=== PATIENT | female | born 1960 | race Caucasian/White ===

== ENCOUNTER 2022-07-14 13:10 | Outpatient (CLI) | payer OTHER, SELFPAY ==
--- NOTE | 2022-07-14 13:20 | CRLHL7_ITS ---
For Patients: As a result of the Century Cures Act, medical imaging exams and procedure reports are released immediately into your electronic medical record. You may view this report before your referring provider. If you have questions, please contact your health care provider. BILATERAL SCREENING MAMMOGRAM WITH COMPUTER-AIDED DETECTION TECHNIQUE: CC and MLO views were obtained. These mammographic images have been obtained using full-field digital technique. These mammographic images were interpreted with the benefit of computer-aided detection. COMPARISON FILM: 04/29/21, 03/25/20, 03/18/19. FINDINGS: There are scattered areas of fibroglandular density IMPRESSION: There is no radiographic evidence for malignancy. ASSESSMENT: BI-RADS Category 1: Negative RECOMMENDATION: Routine screening mammogram in 1 year. A lay language report of this examination will be provided to the patient. Carl Vazquez M.D. Diagnostic Radiologist [email or web address] Transcribed: 7:43 p.m. JAREN/Dictated by: Carl Vazquez MD @ 07/18/2022 11:46:00 AM (Electronically Signed)
== END 2022-07-14 13:11 | disposition home or self-care (01) ==
LOC: MAMMO 13:12
PROVIDERS: PCP Family Medicine; Visit Provider Family Medicine
DX: Z12.31 Encounter for screening mammogram for malignant neoplasm of breast (principal)
CPT/HCPCS: 77067

== ENCOUNTER 2022-08-18 16:16 | Outpatient (CLI) | payer OTHER, SELFPAY ==
[2022-08-18 22:19] LABS: Albumin* 4.9 g/dL (3.3-5.0)
[2022-08-18 22:22] LABS: Bilirubin Direct* 0.3 mg/dL (0.0-0.5); Bilirubin Total* 0.4 mg/dL (0.1-1.5)
[2022-08-18 22:23] LABS: Alanine Aminotransferase* 21 U/L (4-35); Alkaline Phosphatase* 61 U/L (40-150); Aspartate Amino Transferase* 23 U/L (12-35); Total Protein* 7.1 g/dL (6.0-8.3)
== END 2022-08-18 16:17 | disposition home or self-care (01) ==
LOC: LKVREF 16:17
PROVIDERS: PCP Family Medicine; Visit Provider Family Medicine
DX: Z01.419 Encounter for gynecological examination (general) (routine) without abnormal findings (principal); F41.8 Other specified anxiety disorders; Z79.899 Other long term (current) drug therapy
CPT/HCPCS: 80076

== ENCOUNTER 2022-10-06 14:39 | Outpatient (CLI) | payer OTHER, SELFPAY ==
[2022-10-06 22:12] LABS: Cholesterol* 207 mg/dL (90-199); HDL Cholesterol* 53 mg/dL (>=50); LDL Cholesterol Calculated 124 mg/dL (<100); Triglycerides* 152 mg/dL (40-149)
== END 2022-10-06 14:40 | disposition home or self-care (01) ==
LOC: LKVREF 14:40
PROVIDERS: PCP Family Medicine; Visit Provider Family Medicine
DX: Z01.818 Encounter for other preprocedural examination (principal); Z79.899 Other long term (current) drug therapy; E66.9 Obesity, unspecified; R63.5 Abnormal weight gain; R53.83 Other fatigue; Z13.6 Encounter for screening for cardiovascular disorders
CPT/HCPCS: 80061

== ENCOUNTER 2023-06-12 11:09 | Outpatient (CLI) | payer OTHER, SELFPAY | END 2023-06-12 11:10 | disposition home or self-care (01) | PROVIDERS: PCP Family Medicine; Visit Provider Family Medicine | DX: Z00.00 Encounter for general adult medical examination without abnormal findings (principal); E78.00 Pure hypercholesterolemia, unspecified; E66.9 Obesity, unspecified; R53.83 Other fatigue; R63.5 Abnormal weight gain; R07.9 Chest pain, unspecified; Z79.899 Other long term (current) drug therapy | CPT/HCPCS: 80048; 80076; 82465; 83718 ==

== ENCOUNTER 2023-06-26 14:06 | Outpatient (CLI) | payer OTHER, SELFPAY ==
[2023-06-26 16:56] VITALS: BP 133/82; PULSE 98
--- NOTE | 2023-06-26 17:01 | W.PM.STED ---
Stress Test Note Date Date of test: 06/26/23 Providers Primary care provider: Torrey Nesbitt Stress test physician: Pito Donald Stress Test Note Stress test ordered: Stress Echo Indication for test: Chest pain Results discussion: Patient is a very nice 63-year-old female who presents here for the above test, stress echo, cardiac stress test medical history form is reviewed entirely. She understands the risks benefits and side effects and like to proceed. Pretest EKG shows normal sinus rhythm, with a ventricular rate of 92, blood pressure 124/79. Following standard Tobin protocol patient is exercised for a total time 7 minutes 2nd, she had a metabolic VIII 0.5 Mets, test is terminated because of fatigue, did not have any chest pain some very mild shortness of breath, her maximum heart rate was 149 which is 110% of the maximum. During this test there is no appreciable ST wave changes suggestive ischemia. Impression: Negative electrographic portion of stress echo, subjectively and objectively negative Follow up suggested: Await echo results, clinical correlation with these will be needed. Patient left this testing facility in excellent condition, final echo report by Cardiology.
--- NOTE | 2023-06-26 17:05 | W.PM.STED ---
Stress Test Note Date Date of test: 06/26/23 Providers Primary care provider: Torrey Nesbitt Stress test physician: Pito Donald Stress Test Note Stress test ordered: Stress Echo
== END 2023-06-26 14:07 | disposition home or self-care (01) ==
LOC: STRESS 14:07
PROVIDERS: PCP Family Medicine; Visit Provider Family Medicine
DX: R07.9 Chest pain, unspecified (principal); E78.00 Pure hypercholesterolemia, unspecified
CPT/HCPCS: 93016; 93325; 93351

== ENCOUNTER 2023-08-15 14:09 | Outpatient (CLI) | payer OTHER, SELFPAY ==
--- NOTE | 2023-08-15 14:00 | CRLHL7_ITS ---
For Patients: As a result of the Century Cures Act, medical imaging exams and procedure reports are released immediately into your electronic medical record. You may view this report before your referring provider. If you have questions, please contact your health care provider. BILATERAL SCREENING MAMMOGRAM WITH COMPUTER-AIDED DETECTION TECHNIQUE: CC and MLO views were obtained. These mammographic images have been obtained using full-field digital technique. These mammographic images were interpreted with the benefit of computer-aided detection. COMPARISON FILM: 07/14/22, 04/29/21, 03/25/20. FINDINGS: There are scattered areas of fibroglandular density IMPRESSION: There is no radiographic evidence for malignancy. ASSESSMENT: BI-RADS Category 1: Negative RECOMMENDATION: Routine screening mammogram in 1 year. A lay language report of this examination will be provided to the patient. Carl Vazquez M.D. Diagnostic Radiologist [email or web address] JAREN/Dictated by: Carl Vazquez MD @ 08/16/2023 8:26:00 AM (Electronically Signed)
== END 2023-08-15 14:10 | disposition home or self-care (01) ==
LOC: MAMMO 14:12
PROVIDERS: PCP Family Medicine; Visit Provider Family Medicine
DX: Z12.31 Encounter for screening mammogram for malignant neoplasm of breast (principal)
CPT/HCPCS: 77067

== ENCOUNTER 2024-07-17 11:28 | Outpatient (CLI) | payer OTHER, SELFPAY ==
--- OUTSIDE RECORDS SUMMARY | 2024-07-17 11:32 | XMS_ITS | Encounter Summary ---
Author Organization [facility] Address [address] [place] [address] Care Team Providers Care It Risk And Assurance Senior Manager Name Role Phone Unassigned, Pcp Primary Care Provider Unavailabl e Reason for Visit * Reason Comments Fall Encounter Details Date Type Department Care Team (Late st Contact Info) Description 07/07/2024 11:50 AM [facility] - 07/07/2024 11:59 PM [facility] Emergency [facility] [address] [place] [id number] Fracture Rib Single Closed Initial Right (Primary Dx) Discharge Disposition: Home or Self Care Social History Tobacco Use Types Packs/Day Years Used Date Smoking Tobacco: Former Cigarettes Q uit: 02/15/2011 Smokeless Tobacco: Never PHQ-2 Answer Date Recorded PHQ-2 Score 0 02/07/2023 Depression Answer Date Recor ded PHQ-9 Total Score (max 27) 0 02/07 Nutrition Answer Date Recorded Nutrition: EVOO Fat Source Unknown 10/27 Nutrition: Servings of Fruits/Vegetables per Day Not on file 10/27/2020 Dental Answer Date Recorded Dental: Regular Dentist Unknown 10/27/19 21 Comments No Sex and Gender Information Value Date Recorded Sex Assigned at Not on file Legal Sex Female 4:19 AM [facility] Gender Identity Not on file Sexual Orientation Not on file documented as of this encounter Medications at Time of Discharge benzonatate (TESSALON) 200 mg capsuleIndication s:Cough Acute Take 1 capsule (200 mg total) by mouth 3 (three) times a day as needed for cough. 42 capsule 04/16/2023 buPROPion XL (WELLBUTRIN XL) 150 mg 24 hr tablet Take 150 mg by mouth. 09/19/2021 buPROPion XL (WELLBUTRIN XL) 300 mg 24 hr tablet Take 300 mg by mouth daily. 10/04/2010 cyclobenzaprine (FLEXERIL) 10 mg tablet 09/19/2021 LORazepam (ATIVAN) 1 mg tablet Take 1 mg by mouth 2 (two) times a day as needed for anxiety. meloxicam (MOBIC) 15 mg tablet 09/19/2021 oxyCODONE-acetami nophen (PERCOCET) 5-325 mg per tablet Take 2 tablets by mouth every 4 (four) hours as needed for pain. rosuvastatin (CRESTOR) 10 mg tablet Take 10 mg by mouth daily. 12/28/2022 traZODone (DESYREL) 50 mg tablet 09/19/2021 valACYclovir (VALTREX) 1000 mg tablet Take 1,000 mg by mouth 2 (two) times a day as needed. venlafaxine (EFFEXOR) 75 mg 24 hr tablet Take 75 mg by mouth daily. documented as of this encounter Plan of Treatment Not on file documented as of this encounter Procedures Procedure Name Priority Date/Time Associated Diagnosis Comments DX HIP AND PELVIS RIGHT 2-3 VIEWS RAD - Semiurgent (Fast; most ED patients; some inpatients) 07/07/2024 1:19 PM [facility] DX ELBOW RIGHT 3+ VIEWS RAD - Semiurgent (Fast; most ED patients; some inpatients) 07/07/2024 1:[address] ABDOMEN PELVIS WITH IV CONTRAST RAD - Semiurgent (Fast; most ED patients; some inpatients) 07/07/2024 1:[address] CHEST WITH IV CONTRAST RAD - Semiurgent (Fast; most ED patients; some inpatients) 07/07/2024 1:07 PM [facility] documented in this encounter Results * DX Hip And Pelvis Right 2-3 Views (07/07/2024 1:19 PM FIRE [facility]IE[facility]ENANT) Anatomical Region Laterality Modality Lower Extremity, Pelvis, Hip , Musculoskeletal RST LOS, Musculoskeletal ARZ LOS, Muskuloskeletal FLA LOS Right Digit al Radiography Impressions 07/07/2024 1:24 PM [facility]IE[facility] No fracture is identified. Degenerative change L4-5 and L5-S1. Degenerative change sacroiliac joints and pubic symphysis. Preserved superior hip joint spaces. Intravenous contrast in the renal collecting systems, ureters, as well as the bladder. Narrative 07/07/2024 1:24 PM [facility] EXAM: DX HIP AND PELVIS RIGHT 2-3 VIEWS Procedure Note Julia Brown M.D. - 07/07/2024 EXAM: DX HIP AND PELVIS RIGHT 2-3 VIEWS IMPRESSION: No fracture is identified. Degenerative change L4-5 and L5-S1.Degenerative change sacroiliac joints and pubic symphysis. Preservedsuperior hip joint spaces. Intravenous contrast in the renal collecting systems, ureters, as well asthe bladder. us Nilton Dominguez P.A.-C. [facility] [place] DIAGNOSTIC IMAGING PRO CEDURES Final Result * DX Elbow Right 3+ Views (07/07/2024 1:18 PM FIRE [facility]IE[facility]) Anatomical Region Laterality Modality Upper Extremity, Elbow, Musc uloskeletal RST LOS, Musculoskeletal ARZ LOS, Muskuloskeletal FLA LOS Right Digit al Radiography Impressions 07/07/2024 3:24 PM [facility] Mild ulnotrochlear degeneration. No dislocation. Negative for acute fracture. No significant knee joint effusion. Narrative 07/07/2024 3:24 PM [facility] EXAM: DX ELBOW RIGHT 3+ VIEWS Procedure Note Nilton Tenroio M.D. - 07/07/2024 EXAM: DX ELBOW RIGHT 3+ VIEWS IMPRESSION: Mild ulnotrochlear degeneration. No dislocation. Negative for acutefracture. No significant knee joint effusion. us Nilton Daniel-C. [facility] DIAGNOSTIC IMAGING PRO CEDURES Final Result * CT Abdomen Pelvis with IV Contrast (07/07/2024 1:07 PM [facility]) Anatomical Region Laterality Modality Abdomen, Pelvis, Abdominal R ST LOS, Abdominal ARZ LOS, Abdominal FLA LOS N/A Computed Tomography 07/07/2024 1:03 PM [facility] Impressions 07/07/2024 1:30 PM [facility] 1. Nondisplaced right ninth rib fracture. 2. Small right buttock subcutaneous hematoma. 3. Moderate emphysema. Narrative 07/07/2024 1:30 PM [facility] EXAM: CT CHEST WITH IV CONTRAST, CT ABDOMEN PELVIS WITH IV CONTRAST COMPARISON: Chest radiograph 10/29/2021 FINDINGS: Chest CT: Focal fatty deposition along the falciform ligament and multiple right hepatic lobe simple cysts. The gallbladder, spleen, pancreas are within normal limits. Trace adenomatous thickening of the left adrenal gland without discrete nodule. Tiny hypodensities in both kidneys, too small to characterize, most likely simple cysts. Heart size is normal without pericardial effusion. No enlarged mediastinal or hilar lymph nodes. There is a nondisplaced fracture of the right ninth lateral rib. No other fracture. Hemangioma in the T10 vertebral body. Moderate emphysema. No focal airspace consolidation. Trace dependent basilar atelectasis. No pneumothorax. No suspicious pulmonary nodule Abdomen pelvis CT: Multiple simple right hepatic cysts. Focal fatty deposition along the falciform ligament. The gallbladder, spleen, pancreas are within normal limits. Trace adenomatous thickening in the left adrenal gland without discrete nodule. Tiny hypodensities in both kidneys are too small to characterize, most likely simple cysts. Prominent left gonadal vein, nonspecific but can be seen in pelvic congestion syndrome. The urinary bladder is within normal limits. Few colonic diverticula without evidence of diverticulitis. Appendectomy. Nondilated small bowel. Normal caliber abdominal aorta. No enlarged lymph nodes. No free abdominal air or fluid. There is a small right buttock subcutaneous hematoma and right buttock fat stranding. No evidence for active bleeding. No pelvic fracture. Degenerative changes in the spine. Procedure Note Adan Ellsworth M.D. - 07/07/2024 EXAM: CT CHEST WITH IV CONTRAST, CT ABDOMEN PELVIS WITH IV CONTRAST COMPARISON: Chest radiograph 10/29/2021 FINDINGS: Chest CT: Focal fatty deposition along the falciform ligament and multipleright hepatic lobe simple cysts. The gallbladder, spleen, pancreas arewithin normal limits. Trace adenomatous thickening of the left adrenalgland without discrete nodule. Tiny hypodensities in both kidneys, too small to characterize, most likelysimple cysts. Heart size is normal without pericardial effusion. Noenlarged mediastinal or hilar lymph nodes. There is a nondisplaced fracture of the right ninth lateral rib. No otherfracture. Hemangioma in the T10 vertebral body. Moderate emphysema. Nofocal airspace consolidation. Trace dependent basilar atelectasis. Nopneumothorax. No suspicious pulmonary nodule Abdomen pelvis CT: Multiple simple right hepatic cysts. Focal fattydeposition along the falciform ligament. The gallbladder, spleen, pancreasare within normal limits. Trace adenomatous thickening in the left adrenalgland without discrete nodule. Tiny hypodensities in both kidneys are too small to characterize, most likelysimple cysts. Prominent left gonadal vein, nonspecific but can be seen inpelvic congestion syndrome. The urinary bladder is within normal limits.Few colonic diverticula without evidence of diverticulitis. Appendectomy. Nondilated small bowel. Normalcaliber abdominal aorta. No enlarged lymph nodes. No free abdominal air orfluid. There is a small right buttock subcutaneous hematoma and right buttock fatstranding. No evidence for active bleeding. No pelvic fracture.Degenerative changes in the spine. IMPRESSION: 1. Nondisplaced right ninth rib fracture. 2. Small right buttock subcutaneous hematoma. 3. Moderate emphysema. Nilton Dominguez P.A.-C. IMG CT PROCEDURES Final Re sult * CT Chest with IV Contrast (07/07/2024 1:07 PM FIRE [facility]IE[facility]NT) Anatomical Region Laterality Modality Chest, Thoracic RST LOS, Tho racic ARZ LOS, Thoracic ARZ LOS, Thoracic FLA LOS N/A Computed Tomography 07/07/2024 1:02 PM [facility] Impressions 07/07/2024 1:30 PM [facility] 1. Nondisplaced right ninth rib fracture. 2. Small right buttock subcutaneous hematoma. 3. Moderate emphysema. Narrative 07/07/2024 1:30 PM [facility] EXAM: CT CHEST WITH IV CONTRAST, CT ABDOMEN PELVIS WITH IV CONTRAST COMPARISON: Chest radiograph 10/29/2021 FINDINGS: Chest CT: Focal fatty deposition along the falciform ligament and multiple right hepatic lobe simple cysts. The gallbladder, spleen, pancreas are within normal limits. Trace adenomatous thickening of the left adrenal gland without discrete nodule. Tiny hypodensities in both kidneys, too small to characterize, most likely simple cysts. Heart size is normal without pericardial effusion. No enlarged mediastinal or hilar lymph nodes. There is a nondisplaced fracture of the right ninth lateral rib. No other fracture. Hemangioma in the T10 vertebral body. Moderate emphysema. No focal airspace consolidation. Trace dependent basilar atelectasis. No pneumothorax. No suspicious pulmonary nodule Abdomen pelvis CT: Multiple simple right hepatic cysts. Focal fatty deposition along the falciform ligament. The gallbladder, spleen, pancreas are within normal limits. Trace adenomatous thickening in the left adrenal gland without discrete nodule. Tiny hypodensities in both kidneys are too small to characterize, most likely simple cysts. Prominent left gonadal vein, nonspecific but can be seen in pelvic congestion syndrome. The urinary bladder is within normal limits. Few colonic diverticula without evidence of diverticulitis. Appendectomy. Nondilated small bowel. Normal caliber abdominal aorta. No enlarged lymph nodes. No free abdominal air or fluid. There is a small right buttock subcutaneous hematoma and right buttock fat stranding. No evidence for active bleeding. No pelvic fracture. Degenerative changes in the spine. Procedure Note Adan Ellsworth M.D. - 07/07/2024 EXAM: CT CHEST WITH IV CONTRAST, CT ABDOMEN PELVIS WITH IV CONTRAST COMPARISON: Chest radiograph 10/29/2021 FINDINGS: Chest CT: Focal fatty deposition along the falciform ligament and multipleright hepatic lobe simple cysts. The gallbladder, spleen, pancreas arewithin normal limits. Trace adenomatous thickening of the left adrenalgland without discrete nodule. Tiny hypodensities in both kidneys, too small to characterize, most likelysimple cysts. Heart size is normal without pericardial effusion. Noenlarged mediastinal or hilar lymph nodes. There is a nondisplaced fracture of the right ninth lateral rib. No otherfracture. Hemangioma in the T10 vertebral body. Moderate emphysema. Nofocal airspace consolidation. Trace dependent basilar atelectasis. Nopneumothorax. No suspicious pulmonary nodule Abdomen pelvis CT: Multiple simple right hepatic cysts. Focal fattydeposition along the falciform ligament. The gallbladder, spleen, pancreasare within normal limits. Trace adenomatous thickening in the left adrenalgland without discrete nodule. Tiny hypodensities in both kidneys are too small to characterize, most likelysimple cysts. Prominent left gonadal vein, nonspecific but can be seen inpelvic congestion syndrome. The urinary bladder is within normal limits.Few colonic diverticula without evidence of diverticulitis. Appendectomy. Nondilated small bowel. Normalcaliber abdominal aorta. No enlarged lymph nodes. No free abdominal air orfluid. There is a small right buttock subcutaneous hematoma and right buttock fatstranding. No evidence for active bleeding. No pelvic fracture.Degenerative changes in the spine. IMPRESSION: 1. Nondisplaced right ninth rib fracture. 2. Small right buttock subcutaneous hematoma. 3. Moderate emphysema. us Nilton Dominguez P.A.-C. IMG CT PROCEDURES Final Re sult documented in this encounter Visit Diagnoses Diagnosis Fracture Rib Single Closed Initial Right- Primary documented in this encounter Administered Medications Inactive Administered Medications - up to 3 most recent administrations Medication Order MAR Action Action Date Dose Rate Site iohexoL 300 mg iodine/mL solution 100 mL (Omnipaque) 100 mL, intravenous, Once in imaging, contrast, Starting on Sun07/07/24 at 1307, For 1 dose Given 07/07/2024 12:58 PM [facility] 100 mL Right Antecubital sodium chloride 0.9 % flush 50 mL 50 mL, intravenous, Once, On Sun07/07/24 at 1315, For 1 dose Given 07/07/2024 1:09 PM [facility] 75 mL Right Antecubital sodium chloride 0.9 % injection 10 mL 10 mL, intravenous, Once, On Sun07/07/24 at 1315, For 1 dose Given 07/07/2024 1:09 PM [facility] 10 mL Right Antecubital documented in this encounter Active and Recently Administered Medications Due to Daylight Saving Time, this section may contain times in both CDT and FIRE [facility]IE[facility]. Scheduled Medication Order 07/05/2024 07/06/2024 07/07/2024 sodium chloride 0.9 % flush 50 mL (COMPLETED) 50 mL, intravenous, Once, On Sun07/07/24 at 1315, For 1 dose 1309 (Given - Provid er: Agyla S Wilks, R.T.(R)(CT), R.T.(R)) sodium chloride 0.9 % injection 10 mL (COMPLETED) 10 mL, intravenous, Once, On Sun07/07/24 at 1315, For 1 dose 1309 (Given - Provid er: Cornelio Benavidez(Gwen)(CT), R.T.(R)) PRN Medication Order 07/05/2024 07/06/2024 07/07/2024 iohexoL 300 mg iodine/mL solution 100 mL (Omnipaque) (COMPLETED) 100 mL, intravenous, Once in imaging, contrast, Starting on Sun07/07/24 at 1307, For 1 dose 1258 (Given - Provid er: Cornelio Benavidez(Gwen)(CT), Gwen.TGely(R)) documented in this encounter Additional Health Concerns Assessment Noted Time PHQ-9 Depression Total Score: 0 02/08/20 23 2:08 PM CDT documented as of this encounter Care Teams It Risk And Assurance Senior Manager Relationship Specialty Start Date End Date Unassigned, Pcp PCP - General Family Medicine 10/29/21 documented as of this encounter
--- OUTSIDE RECORDS SUMMARY | 2024-07-17 11:32 | XMS_ITS ---
Author Organization [facility] Address [address] [place] [address] Care Team Providers Care Natural Resources Extension Educator Name Role Phone Unavailable Unavailable Unavailable Surgery Details Not on file Complications Check Surgery Details section. Procedure Estimated Blood Loss Check Surgery Details section. Procedure Findings Check Surgery Details section. Procedure Specimens Taken Check Surgery Details section.
--- OUTSIDE RECORDS SUMMARY | 2024-07-17 11:32 | XMS_ITS | Encounter Summary ---
Author Organization [facility] Address [address] [place] [address] Care Team Providers Care Flagsetter Name Role Phone Unassigned, Pcp Primary Care Provider Unavailabl e Reason for Visit * Reason Onset Date Comments Fall 07/07/2024 Chest Wall Pain 07/07/2024 Encounter Details Date Type Department Care Team (Late st Contact Info) Description 07/07/2024 Nurse Triage Department of Family Medicine, [facility], in [place], [place] [address] [place] [phone] Joan Ramirez RVivian. Fall; Chest Wall Pain Social History Tobacco Use Types Packs/Day Years [...] on file Legal Sex Female 4:19 AM CUSTOMER SERVICE ADVOCATE Gender Identity Not on file Sexual Orientation Not on file documented as of this encounter Miscellaneous Notes * Telephone Encounter - Joan Ramirez, R.N. - 07/07/2024 10:07 AM CUSTOMER SERVICE ADVOCATE Chief Complaint / Reason for Call Patient is a 64 y.o. female calling regarding Fall and Chest Wall Pain. Assessment Concern: Patient is calling in regarding falling with a ladder around 7 feet high. Patient landed on her hand and right side. The left knee is also sore. There is a large lump on the right side near hip bone. Patient can walk, but is very sore. Pain 8/10, rest increases with movement. Present for: yesterday Home cares tried: Tylenol, ibuprofen Calling to request: appointment The recommended disposition is See a health care provider within 24 hours. Patient was provided scheduling phone number, plan of care, and transferred to scheduling per current regional process. Care Advice Patient/Caregiver understands and will follow care advice?: Yes, able to teach back Hip Jllenm-HFAFX-BD Nurse Joan [facility] Jul 07, 2024 10:16 AM Care Advice SEE PCP WITHIN 24 HOURS: * IF OFFICE WILL BE OPEN: You need to be examined within the next 24 hours. Call your doctor (or LABORATORY VETERINARIAN/PA) when the office opens and make an appointment. * IF OFFICE WILL BE CLOSED: You need to be seen within the next 24 hours. A clinic or an urgent care center is often a good source of care if your doctor's office is closed or you can't get an appointment. * IF PATIENT HAS NO PCP: Refer patient to a clinic or urgent care center. Also try to help caller find a PCP for future care. USE A COLD PACK FOR PAIN, SWELLING, OR BRUISING: * Put a cold pack or an ice bag (wrapped in a moist towel) on the area for 20 minutes. * Repeat in 1 hour, then every 4 hours while awake. * Continue this for the first 48 hours (2 days) after an injury. * This will help decrease pain, swelling, and bruising. * Caution: Avoid frostbite. PAIN MEDICINES: * For pain relief, you can take either acetaminophen, ibuprofen, or naproxen. * They are ayfa-kln-emjzcal (OTC) pain drugs. You can buy them at the drugstore. * ACETAMINOPHEN - REGULAR STRENGTH TYLENOL: Take 650 mg (two 325 mg pills) by mouth every 4 to 6 hours as needed. Each Regular Strength Tylenol pill has 325 mg of acetaminophen. The most you should take is 10 pills a day (3,250 mg total). Note: In [place], the maximum is 12 pills a day (3,900 mg total). * ACETAMINOPHEN - EXTRA STRENGTH TYLENOL: Take 1,000 mg (two 500 mg pills) every 6 to 8 hours as needed. Each Extra Strength Tylenol pill has 500 mg of acetaminophen. The most you should take is 6 pills a day (3,000 mg total). Note: In [place], the maximum is 8 pills a day (4,000 mg total). * IBUPROFEN (SUCH MOTRIN, ADVIL): Take 400 mg (two 200 mg pills) by mouth every 6 hours. The most you should take is 6 pills a day (1,200 mg total). * NAPROXEN (SUCH ALEVE): Take 220 mg (one 220 mg pill) by mouth every 8 to 12 hours as needed. You may take 440 mg (two 220 mg pills) for your first dose. The most you should take is 3 pills a day(660 mg total). Note: In [place], the maximum is 2 pills a day (one every 12 hours; 440 mg total). * Use the lowest amount of medicine that makes your pain better. PAIN MEDICINES - EXTRA NOTES AND WARNINGS: * Follow these dosing instructions unless your doctor (or LABORATORY VETERINARIAN/PA) has told you to take a different dose. * Acetaminophen is thought to be safer than ibuprofen or naproxen in people over 65 years old. Acetaminophen is in many OTC and prescription medicines. It might be in more than one medicine that you are taking. You need to be careful and not take an overdose. An acetaminophen overdose can hurt the liver. * [employer], the company that makes Tylenol, has different maximum dosage instructions for Tylenol in [place] than in the [place]. [employer], the company that makes Aleve, has different dosage maximum instructions for Aleve in [place] and the [place]. * Some people with muscle and joint pain benefit from using OTC topical pain medicines (such as thetopical NSAID diclofenac). Do NOT also take NSAIDs by mouth while using a topical NSAID. * CAUTION: Do not take acetaminophen if you have liver disease. * CAUTION: Do not take ibuprofen or naproxen if you have stomach problems, kidney disease, are , or have been told by your doctor to avoid this type of anti-inflammatory drug. Do not take ibuprofen or naproxen for more than 7 days without consulting your doctor. If you take blood thinners, ibuprofen and naproxen can increase the risk of bleeding. * Before taking any medicine, read all the instructions on the package. CALL BACK IF: * Pain becomes severe * You become worse Reason for Disposition [1] MODERATE pain (e.g., interferes with normal activities, limping) AND [2] high-risk adult (e.g.,age > 60 years, osteoporosis, chronic steroid use) Protocols used: Hip Tavpoz-UHTZY-AP OMER SERVICE ADVOCATE documented in this encounter Plan of Treatment Not on file documented as of this encounter Visit Diagnoses Not on filedocumented in this encounter Additional Health Concerns Assessment Noted Time PHQ-9 Depression Total Score: 0 02/08/20 23 2:08 PM CDT documented as of this encounter Care Teams Flagsetter Relationship Specialty Start Date End Date Unassigned, Pcp PCP - General Family Medicine 10/29/21 documented as of this encounter
--- OUTSIDE RECORDS SUMMARY | 2024-07-17 11:32 | XMS_ITS | Clinical Summary ---
Author Organization [facility] Address [address] [place] [id number] Care Team Providers Care Protective Services Officer Name Role Phone Unassigned, Pcp Primary Care Provider Unavailabl e Source Comments Patient records contain information from all sites at [facility]. For routine questions regarding patient records, call [phone] during business hours, M-F 8:00 AM - 5:00 PM Central Time. Record requests for emergency care only can be directed to [phone] at any time.[facility] Allergies Active Allergy Reactions Criticality Noted Date Comments Bee Venom Protein (Honey Bee) Other (see comments) 05/17/2018 Skin swelling and hardness Other reaction(s): Other - Describe In Comment Field Skin swelling and hardness Medications * This document contains information received from the source organization and may not represent a complete record from that organization. buPROPion XL (WELLBUTRIN XL) 300 mg 24 hr tablet Take 300 mg by mouth daily. 10/04/2010 Active venlafaxine (EFFEXOR) 75 mg 24 hr tablet Take 75 mg by mouth daily. Active LORazepam (ATIVAN) 1 mg tablet Take 1 mg by mouth 2 (two) times a day as needed for anxiety. Active valACYclovir (VALTREX) 1000 mg tablet Take 1,000 mg by mouth 2 (two) times a day as needed. Active oxyCODONE-aceta minophen (PERCOCET) 5-325 mg per tablet Take 2 tablets by mouth every 4 (four) hours as needed for pain. Active cyclobenzaprine (FLEXERIL) 10 mg tablet 09/19/2021 Active meloxicam (MOBIC) 15 mg tablet 09/19/2021 Active traZODone (DESYREL) 50 mg tablet 09/19/2021 Active rosuvastatin (CRESTOR) 10 mg tablet Take 10 mg by mouth daily. 12/28/2022 Active buPROPion XL (WELLBUTRIN XL) 150 mg 24 hr tablet Take 150 mg by mouth. 09/19/2021 Active benzonatate (TESSALON) 200 mg capsuleIndicati ons:Cough Acute Take 1 capsule (200 mg total) by mouth 3 (three) times a day as needed for cough. 42 capsule 04/16/2023 Active Active Problems Problem Noted Date Diagnosed Date Radiculopathy Cervical 05/17/2018 Stenosis Spinal Cervical 05/17/2018 Major Depressive Disorder Single Episode Unspeci fied 04/14/2008 Overview (01/23/2017): Depression Major NOS Encounters Date Type Department Care Team Description 07/07/2024 11:50 AM RN MATERNAL CHILD - 07/07/2024 11:59 PM RN MATERNAL CHILD Emergency [facility] [address] [place] [phone] Fracture Rib Single Closed Initial Right (Primary Dx) Discharge Disposition: Home or Self Care 07/07/2024 Nurse Triage Department of Family Medicine, [facility], in [place], [place] [address] [phone] Joan Ramirez, RGelyN. Fall; Chest Wall Pain from Last 3 Months Immunizations Name Administration Dates Next Due DTaP (Infanrix, [employer]) 04/26/2007 H1N1 Inj 08/25/2009 Influenza Split 06/19/2006, 5,06/08/2004,2002,07/09/2002 Influenza, Seasonal, Injectable 07/04/2007 Influenza, Unspecified 05/04/2016,2014,05/22/2012,2010,06/01/2010 Tdap 12/11/2014,04/26/2007 influenza trivalent vaccine (6 months and older)(PF) 06/07/2009,06/22/2008 Social History Tobacco Use Types Packs/Day Years Used Date Smoking Tobacco: Former Cigarettes Q uit: 02/15/2011 Smokeless Tobacco: Never Tobacco Cessation:Counseling Given: Not Answered PHQ-2 Answer Date Recorded PHQ-2 Score 0 [...] on file Legal Sex Female 4:19 AM RN MATERNAL CHILD Gender Identity Not on file Sexual Orientation Not on file Last Filed Vital Signs Vital Sign Reading Time Taken Comments Blood Pressure 130/83 04/16/2023 5:59 PM CDT Pulse 102 04/16/2023 5:59 PM CDT Temperature 37.6 ??C (99.7 ??F) 04/16/2023 5:59 PM CD T Respiratory Rate 16 02/07/2023 2:14 PM CDT Oxygen Saturation 96% 04/16/2023 5:59 PM CDT Inhaled Oxygen Concentration - - Weight 89.2 kg (196 lb 10.4 oz) 02/07/2023 2:14 PM CDT Height 162 cm (5' 3.78) 02/15/2018 2:00 PM CDT Body Mass Index 33.99 02/15/2018 2:00 PM CDT Plan of Treatment Health Maintenance Due Date Last Done Comments CT Colonography 1960 Cologuard 1960 FIT 1960 HIV Screening 1960 Hepatitis C Screening 1960 Mammogram 02/06/2016 02/05/2015, 01/2014, 01/30/2013, Additional history exists Lipid (Cholesterol) Screening 02/06/2020 02/05/2015, 02/05/2014, 02/03/2013 Depression Monitoring (PHQ-9) 06/09/2023 02/07/2023 Depression Monitoring (PHQ-9 for quality tracking) 09/03/2023 Cervical/Vaginal Cancer Screening 04/04/2024 04/04/2021, 02/21/2018, 02/07/2016, Additional history exists COVID-19 Vaccine ( season) 2024 05/23/2023, 06/02/2022, 08/22/2021, Additional history exists Influenza Vaccine (#1) 2024 , 05/26/2022, 06/17/2021, Additional history exists DTaP,Tdap,and Td Vaccines (4 - Td or Tdap) 12/11/2024 12/11/2014, 04/26/2007, 04/26/2007 Fasting Glucose for Diabetes Screening 07/07/2027 07/07/2024, 02/05/2015, 02/05/2014, Additional history exists Colonoscopy 02/09/2033 02/09/2023, 09/19/2012 Colorectal Cancer Screening 02/09/2033 Zoster Vaccines Completed 02/12/2019, 11/18/2018 IPV Vaccines Aged Out No longer eligi ble based on patient's age to complete this topic Pneumococcal vaccine (0-64 years) Aged Out No longer eligible based on patient's age to complete this topic Procedures Procedure Name Priority Date/Time Associated Diagnosis Comments DX HIP AND PELVIS RIGHT 2-3 VIEWS RAD - Semiurgent (Fast; most ED patients; some inpatients) 07/07/2024 1:19 PM RN MATERNAL CHILD DX ELBOW RIGHT 3+ VIEWS RAD - Semiurgent (Fast; most ED patients; some inpatients) 07/07/2024 1:[address] ABDOMEN PELVIS WITH IV CONTRAST RAD - Semiurgent (Fast; most ED patients; some inpatients) 07/07/2024 1:[address] CHEST WITH IV CONTRAST RAD - Semiurgent (Fast; most ED patients; some inpatients) 07/07/2024 1:07 PM RN MATERNAL CHILD GLUCOSE, FASTING, S/P Routine 02/05/2015 11:09 AM CDT LIPID PANEL, S Routine 02/05/2015 11:09 AM CDT BI BREAST SCREENING BILATERAL Routine 02/05/2015 10:43 AM CDT PATHOLOGY DIVISION OPERATIONS SPECIALIST CYTOLOGY Routine 02/05/2015 12:00 AM CDT from Last 3 Months or Most Recently Relevant to Health Maintenance Results * DX Hip And Pelvis Right 2-3 Views (07/07/2024 1:19 PM RN MATERNAL CHILD) Anatomical Region Laterality Modality Lower Extremity, Pelvis, Hip , Musculoskeletal RST LOS, Musculoskeletal ARZ LOS, Muskuloskeletal FLA LOS Right Digit al Radiography Impressions 07/07/2024 1:24 PM RN MATERNAL CHILD No fracture is identified. Degenerative change L4-5 and L5-S1. Degenerative change sacroiliac joints and pubic symphysis. Preserved superior hip joint spaces. Intravenous contrast in the renal collecting systems, ureters, as well as the bladder. Narrative 07/07/2024 1:24 PM RN MATERNAL CHILD EXAM: DX HIP AND PELVIS RIGHT 2-3 VIEWS Procedure Note Julia Brown M.D. - 07/07/2024 EXAM: DX HIP AND PELVIS RIGHT 2-3 VIEWS IMPRESSION: No fracture is identified. Degenerative change L4-5 and L5-S1.Degenerative change sacroiliac joints and pubic symphysis. Preservedsuperior hip joint spaces. Intravenous contrast in the renal collecting systems, ureters, as well asthe bladder. Nilton Dominguez P.A.-C. IMG DIAGNOSTIC IMAGING PRO CEDURES Final Result * DX Elbow Right 3+ Views (07/07/2024 1:18 PM RN MATERNAL CHILD) Anatomical Region Laterality Modality Upper Extremity, Elbow, Musc uloskeletal RST LOS, Musculoskeletal ARZ LOS, Muskuloskeletal FLA LOS Right Digit al Radiography Impressions 07/07/2024 3:24 PM RN MATERNAL CHILD Mild ulnotrochlear degeneration. No dislocation. Negative for acute fracture. No significant knee joint effusion. Narrative 07/07/2024 3:24 PM RN MATERNAL CHILD EXAM: DX ELBOW RIGHT 3+ VIEWS Procedure Note Nilton Tenorio M.D. - 07/07/2024 EXAM: DX ELBOW RIGHT 3+ VIEWS IMPRESSION: Mild ulnotrochlear degeneration. No dislocation. Negative for acutefracture. No significant knee joint effusion. Nilton Dominguez P.A.-C. IMG DIAGNOSTIC IMAGING PRO CEDURES Final Result * CT Abdomen Pelvis with IV Contrast (07/07/2024 1:07 PM RN MATERNAL CHILD) Anatomical Region Laterality Modality Abdomen, Pelvis, Abdominal R ST LOS, Abdominal ARZ LOS, Abdominal FLA LOS N/A Computed Tomography 07/07/2024 1:03 PM RN MATERNAL CHILD Impressions 07/07/2024 1:30 PM RN MATERNAL CHILD 1. Nondisplaced right ninth rib fracture. 2. Small right buttock subcutaneous hematoma. 3. Moderate emphysema. Narrative 07/07/2024 1:30 PM RN MATERNAL CHILD EXAM: CT CHEST WITH IV CONTRAST, CT [...] Chest with IV Contrast (07/07/2024 1:07 PM RN MATERNAL CHILD) Anatomical Region Laterality Modality Chest, Thoracic RST LOS, Tho racic ARZ LOS, Thoracic ARZ LOS, Thoracic FLA LOS N/A Computed Tomography 07/07/2024 1:02 PM RN MATERNAL CHILD Impressions 07/07/2024 1:30 PM RN MATERNAL CHILD 1. Nondisplaced right ninth rib fracture. 2. Small right buttock subcutaneous hematoma. 3. Moderate emphysema. Narrative 07/07/2024 1:30 PM RN MATERNAL CHILD EXAM: CT CHEST WITH IV CONTRAST, CT [...] IMG CT PROCEDURES Final Re sult * Lipid Panel (02/05/2015 11:09 AM CDT) Calculated LDL 100 <=129 MGDL POWERCHART Comment: 2014 National Lipid Association recommendations for LDL-C in adults ages 18 and up: Desirable <100 mg/dL Above desirable 100-129 mg/dL Borderline high 130-159 mg/dL High 160-189 mg/dL Very High 190 mg/dL 2014 National Lipid Association recommendations for LDL-C in children ages 2 to 17. Acceptable <110 mg/dL Borderline High 110-129mg/dL High 130 mg/dL LDL-C >190mg/dL: The markedly elevated LDL level is suggestive of a genetic condition such as familial hypercholesterolemia(FH) or familial defective apolipoprotein B-100 (FDB). Molecular genetic testing for FH and FDB is available through [employer]: FH/ADH Genetic Reflex Panel (test ADHP). Acquired (non-genetic) causes of markedly increased LDL cholesterol include cholestatic liver disease due to the presence of LpX. If a genetic form of hypercholesterolemia is suspected, family studies including biochemical testing for lipids (total cholesterol,triglycerides, LDL cholesterol and HDL cholesterol) are recommended. ??Please contact the laboratory at or the on-line test catalog at [employer] for information about how to order these tests or to speak with a genetic counselor. Further interpretation would require clinical information. Total Cholesterol/HDL Ratio 3.12 POWERCHART Cholesterol, Total 184 <=199 MGDL POWERCHART Comment: 2014 National Lipid Association recommendations for Total Cholesterol in adults ages 18 and up: Desirable <200 mg/dL Borderline high 200-239 mg/dL High 240 mg/dL 2014 National Lipid Association recommendations for Total Cholesterol in children ages 2 to 17. Acceptable <170 mg/dL Borderline High 170-199 mg/dL High 200 mg/dL HX HDL 59 >=50 MGDL POWERCHART Comment: 2014 National Lipid Association recommendations for HDL-C in adults ages 18 and up: Low <40 mg/dL (Men) Low <50 mg/dL (Women) 2014 National Lipid Association recommendations for HDL-C in children ages 2 to 17. Low <40 mg/dL Borderline Low 40-45 mg/dL Acceptable >45 mg/dL Triglycerides 123 <=149 MGDL POWERCHART Comment: 2014 National Lipid Association recommendations for Triglycerides in adults ages 18 and up: Normal <150 mg/dL Borderline High 150-199 mg/dL High 200-499 mg/dL Very High 500 mg/dL 2014 National Lipid Association recommendations for Triglycerides in children ages 2 to 9. Acceptable <75 mg/dL Borderline High 75-99 mg/dL High 100 mg/dL 2014 National Lipid Association recommendations for Triglycerides in children ages 10 to 17. Acceptable <90 mg/dL Borderline High 90-129 mg/dL High 130 mg/dL Trigs >400mg/dL: Triglycerides >400 mg/dL. Calculated LDL cholesterol is not valid. Non-HDL cholesterol may be used for risk assessment when triglycerides are >400mg/dL. HXLDL/HDL 2 POWERCHART Blood 02/05/2015 11:0 9 AM CDT us Torrey Nesbitt M.D. LAB BLOOD ADD-ON Final Resul t POWERCHART * BI Breast Screening Bilateral (02/05/2015 10:43 AM CDT) Anatomical Region Laterality Modality Breast Bilateral Mammography 02/05/2015 10:4 3 AM CDT Impressions 02/05/2015 1:04 PM CDT Recommendations: ??I recommend a follow-up mammogram in 1 year, self breast exams at least once per month and clinical breast exam at least once per year. ??Of note, benign findings should not deter biopsy in the setting of a palpable abnormality. ??The false negative rate of mammography is approximately 10%. CODE: 1-NEGATIVE Appropriate letter sent. Full field digital mammography is used and Computer Aided Detection is performed on the digital mammogram images. Narrative 02/05/2015 1:04 PM CDT EXAM: MA Mammo Screening w/ CADD INDICATION: screening ? AGE: 54 years-old COMPARISON: Previous studies dating back to 01/06/03. VIEWS: MLO and CC views of bilateral breasts. FINDINGS: The breasts are heterogeneously dense, which may obscure small masses. No change. Procedure Note Carl Tierney M.D. / Bill Bermudez M.D. - 01/10/2017 EXAM: MA Mammo Screening w/ CADD INDICATION: screening AGE: 54 years-old COMPARISON: Previous studies dating back to 01/06/03. VIEWS: MLO and CC views of bilateral breasts. FINDINGS: The breasts are heterogeneously dense, which may obscure small masses. No change. IMPRESSION: Recommendations: I recommend a follow-up mammogram in 1 year, self breast exams at least once per month and clinical breast exam at least once per year. Of note, benign findings should not deter biopsy in the setting of a palpable abnormality. The false negative rate of mammography is approximately 10%. CODE: 1-NEGATIVE Appropriate letter sent. Full field digital mammography is used and Computer Aided Detection is performed on the digital mammogram images. us Venus Durán R.TGely(R), R.T.(R)([place]) [facility] DEEJAY HERNANDEZ Edited Result - Final * Pathology DIVISION OPERATIONS SPECIALIST Cytology (02/05/2015 12:00 AM CDT) 02/05/2015 Narrative [facility] - 02/15/2015 8:44 AM CDT [facility] in [place] [address] [place], [place] ??[phone] Patient Name: OTONIEL LIVE Collected: 02/05/2015 Address: City/State/Zip: [address] [place] [address] ??[phone] Received: Reported: 02/08/2015 02/15/2015 Soc. Sec. #: ?/Age/Sex 1960 (Age: 54) ??F Physician(s): DAVE NESBITT MD Copy To: ? [facility] ??[id number], ??[place] ??[id number] CYTOPATHOLOGY DIVISION OPERATIONS SPECIALIST REPORT FINAL CYTOLOGIC DIAGNOSIS Pap Smear - ThinPrep: NEGATIVE FOR INTRAEPITHELIAL LESION OR MALIGNANCY PRESENCE OR ABSENCE OF ENDOCERVICAL COMPONENT CANNOT BE DETERMINED DUE TO ATROPHY. SATISFACTORY SPECIMEN FOR EVALUATION. Electronically Signed Out By dayannaw/02/15/2015 DAYANNA Ariaswrzchano ZURITA(ASCP) The Pap test is a screening procedure and, as such, is subject to both false positive and false negative results as evidenced by published data. ??It is not a diagnostic test and results should be interpreted in the context of the patient's history and other clinical findings. ??Obtaining periodic Pap tests may help to minimize the consequences of any false negatives that may occur. SPECIMEN(S) RECEIVED: Pap Smear - ThinPrep CLINICAL HISTORY: Date of Last PAP: 02/05/2014 Date of Last Menstrual Period: 11/2013 Menstrual History: Postmenopausal Hormonal History: No hormonal therapy Other Clinical Conditions: HPV TYPING REQUESTED: IF ASCUS Torrey Nesbitt M.D. LAB PAP COPATH ORDERABLES Fi nal Result [facility] from Last 3 Months or Most Recently Relevant to Health Maintenance Insurance [facility] [address] [place] [id number] Care Teams Protective Services Officer Relationship Specialty Start Date End Date Unassigned, Pcp PCP - General Family Medicine 10/29/21
--- OUTSIDE RECORDS SUMMARY | 2024-07-17 11:32 | XMS_ITS | Referral Summary ---
Author Organization [facility] Address [address] [place] [address] Care Team Providers Care Cutter And Presser Name Role Phone Unassigned, Pcp Primary Care Provider Unavailabl e Source Comments Patient records contain information from all sites at [facility]. For routine questions regarding patient records, call [phone] during business hours, M-F 8:00 AM - 5:00 PM Central Time. Record requests for emergency care only can be directed to [phone] at any time.[facility] Encounters Date Type Department Care Team Description 07/07/2024 11:50 AM CHIEF SERVICE OBSERVER - 07/07/2024 11:59 PM CHIEF SERVICE OBSERVER Emergency [facility] [address] [place] [phone] Fracture Rib Single Closed Initial Right (Primary Dx) Discharge Disposition: Home or Self Care 07/07/2024 Nurse Triage Department of Family Medicine, [facility], in [place], [place] [address] [place] [address] Joan Ramirez R.N. Fall; Chest Wall Pain from Last 3 Months Allergies Active Allergy Reactions Criticality Noted Date [...] fied 04/14/2008 Overview (01/23/2017): Depression Major NOS Immunizations Name Administration Dates Next Due DTaP [...] on file Legal Sex Female 4:19 AM CHIEF SERVICE OBSERVER Gender Identity Not on file Sexual Orientation [...] 02/15/2018 2:00 PM CDT Plan of Treatment Not on file Procedures Procedure Name Priority Date/Time Associated Diagnosis Comments DX HIP AND PELVIS RIGHT 2-3 VIEWS RAD - Semiurgent (Fast; most ED patients; some inpatients) 07/07/2024 1:19 PM CHIEF SERVICE OBSERVER DX ELBOW RIGHT 3+ VIEWS RAD - Semiurgent (Fast; most ED patients; some inpatients) 07/07/2024 1:18 PM CHIEF SERVICE OBSERVER CT ABDOMEN PELVIS WITH IV CONTRAST RAD - Semiurgent (Fast; most ED patients; some inpatients) 07/07/2024 1:07 PM CHIEF SERVICE OBSERVER CT CHEST WITH IV CONTRAST RAD - Semiurgent (Fast; most ED patients; some inpatients) 07/07/2024 1:07 PM CHIEF SERVICE OBSERVER GLUCOSE, FASTING, S/P Routine 02/05/2015 11:09 AM CDT LIPID PANEL, S Routine 02/05/2015 11:09 AM CDT BI BREAST SCREENING BILATERAL Routine 02/05/2015 10:43 AM CDT PATHOLOGY TIRE BALANCER CYTOLOGY Routine 02/05/2015 12:00 AM CDT from Last 3 Months or Most Recently Relevant to Health Maintenance Results * DX Hip And Pelvis Right 2-3 Views (07/07/2024 1:19 PM CHIEF SERVICE OBSERVER) Anatomical Region Laterality Modality Lower Extremity, Pelvis, Hip , Musculoskeletal RST LOS, Musculoskeletal ARZ LOS, Muskuloskeletal FLA LOS Right Digit al Radiography Impressions 07/07/2024 1:24 PM CHIEF SERVICE OBSERVER No fracture is identified. Degenerative change L4-5 and L5-S1. Degenerative change sacroiliac joints and pubic symphysis. Preserved superior hip joint spaces. Intravenous contrast in the renal collecting systems, ureters, as well as the bladder. Narrative 07/07/2024 1:24 PM CHIEF SERVICE OBSERVER EXAM: DX HIP AND PELVIS RIGHT 2-3 VIEWS Procedure Note Julia Brown M.D. - 07/07/2024 EXAM: DX HIP AND PELVIS RIGHT 2-3 VIEWS IMPRESSION: No fracture is identified. Degenerative change L4-5 and L5-S1.Degenerative change sacroiliac joints and pubic symphysis. Preservedsuperior hip joint spaces. Intravenous contrast in the renal collecting systems, ureters, as well asthe bladder. us Nilton Dominguez P.A.-C. IMG DIAGNOSTIC IMAGING PRO CEDURES Final Result * DX Elbow Right 3+ Views (07/07/2024 1:18 PM CHIEF SERVICE OBSERVER) Anatomical Region Laterality Modality Upper Extremity, Elbow, Musc uloskeletal RST LOS, Musculoskeletal ARZ LOS, Muskuloskeletal FLA LOS Right Digit al Radiography Impressions 07/07/2024 3:24 PM CHIEF SERVICE OBSERVER Mild ulnotrochlear degeneration. No dislocation. Negative for acute fracture. No significant knee joint effusion. Narrative 07/07/2024 3:24 PM CHIEF SERVICE OBSERVER EXAM: DX ELBOW RIGHT 3+ VIEWS Procedure Note Nilton Tenorio M.D. - 07/07/2024 EXAM: DX ELBOW RIGHT 3+ VIEWS IMPRESSION: Mild ulnotrochlear degeneration. No dislocation. Negative for acutefracture. No significant knee joint effusion. us Nilton Dominguez P.A.-C. IMG DIAGNOSTIC IMAGING PRO CEDURES Final Result * CT Abdomen Pelvis with IV Contrast (07/07/2024 1:07 PM CHIEF SERVICE OBSERVER) Anatomical Region Laterality Modality Abdomen, Pelvis, Abdominal R ST LOS, Abdominal ARZ LOS, Abdominal FLA LOS N/A Computed Tomography 07/07/2024 1:03 PM CHIEF SERVICE OBSERVER Impressions 07/07/2024 1:30 PM CHIEF SERVICE OBSERVER 1. Nondisplaced right ninth rib fracture. 2. Small right buttock subcutaneous hematoma. 3. Moderate emphysema. Narrative 07/07/2024 1:30 PM CHIEF SERVICE OBSERVER EXAM: CT CHEST WITH IV CONTRAST, CT [...] Chest with IV Contrast (07/07/2024 1:07 PM CHIEF SERVICE OBSERVER) Anatomical Region Laterality Modality Chest, Thoracic RST LOS, Tho racic ARZ LOS, Thoracic ARZ LOS, Thoracic FLA LOS N/A Computed Tomography 07/07/2024 1:02 PM CHIEF SERVICE OBSERVER Impressions 07/07/2024 1:30 PM CHIEF SERVICE OBSERVER 1. Nondisplaced right ninth rib fracture. 2. Small right buttock subcutaneous hematoma. 3. Moderate emphysema. Narrative 07/07/2024 1:30 PM CHIEF SERVICE OBSERVER EXAM: CT CHEST WITH IV CONTRAST, CT [...] hematoma. 3. Moderate emphysema. Nilton Dominguez P.A.-C. IMSin CT PROCEDURES Final Re sult * Lipid [...] for FH and FDB is available through [facility] [employer] Response: FH/ADH Genetic Reflex Panel (test ADHP). Acquired (non-genetic) causes of markedly increased LDL cholesterol include cholestatic liver disease due to the presence of LpX. If a genetic form of hypercholesterolemia is suspected, family studies including biochemical testing for lipids (total cholesterol,triglycerides, LDL cholesterol and HDL cholesterol) are recommended. ??Please contact the laboratory at or the on-line test catalog at [facility] for information about how to order these [...] is performed on the digital mammogram images. Venus Grimes(R), RGelyTGely(R)(M) IMG BI TX OCEDURES Edited Result - Final * Pathology TIRE BALANCER Cytology (02/05/2015 12:00 AM CDT) 02/05/2015 Narrative [facility] - 02/15/2015 8:44 AM CDT [facility] in [address] [place] [address] ??[phone] Patient Name: OTONIEL LIVE Collected: 02/05/2015 Address: City/State/Zip: [address] [place] [address] ??[phone] Received: Reported: 02/08/2015 02/15/2015 Soc. Sec. #: ?/Age/Sex 1960 (Age: 54) ??F Physician(s): DAVE NESBITT MD Copy To: ? [facility] ??[phone] [facility], ??[place] ??[id number] CYTOPATHOLOGY TIRE BALANCER REPORT FINAL CYTOLOGIC DIAGNOSIS Pap Smear - ThinPrep: NEGATIVE FOR INTRAEPITHELIAL LESION OR MALIGNANCY PRESENCE OR ABSENCE OF ENDOCERVICAL COMPONENT CANNOT BE DETERMINED DUE TO ATROPHY. SATISFACTORY SPECIMEN FOR EVALUATION. Electronically Signed Out By dayannaw/02/15/2015 DAYANNA ZURITA(ASCP) The Pap test is a screening [...] LAB PAP COPATH ORDERABLES Fi nal Result [facility] from Last 3 Months or Most Recently Relevant to Health Maintenance Insurance [facility] [place] [id number] Care Teams Cutter And Presser Relationship Specialty Start Date End Date Unassigned, Pcp PCP - General Family Medicine 10/29/21
--- OUTSIDE RECORDS SUMMARY | 2024-07-17 11:32 | XMS_ITS | Clinical Summary ---
Author Organization [facility] Address [place], [place] [address] Care Team Providers Care Plater Barrel Name Role Phone Pcp, No Primary Care Provider Unavailabl e Allergies Active Allergy Reactions Criticality Noted Date Comments Bee Venom Protein (Honey Bee) Other - Describe In Comment Field 05/17/2018 Skin swelling and hardness Medications Medication Sig Dispensed Refills Start Date End Date Status LORazepam (ATIVAN) 1 mg tabletIndications:anx iety Take 1 mg by mouth 3 times daily if needed. Indications: ANXIETY Active buPROPion (WELLBUTRIN XL) 150 mg Extended-Release tablet Take 150 mg by mouth once daily in the afternoon. 09/19/2021 Active venlafaxine extended release (VENLAFAXINE XR, PredictAd,) 75 mg extended release tablet Take 75 mg by mouth once daily in the afternoon. Active valACYclovir (VALTREX) 1 gram tablet Take 1,000 mg by mouth two times daily. Active traZODone (DESYREL) 50 mg tablet Take 50 mg by mouth once daily in the afternoon. 09/19/2021 Active oxyCODONE-acetaminoph en (PERCOCET) 5-325 mg per tablet Take 2 Tablets by mouth every 4 hours if needed. Active meloxicam 15 mg tablet Take 15 mg by mouth once daily. 09/19/2021 Active cyclobenzaprine (FLEXERIL) 10 mg tablet Take 10 mg by mouth 3 times daily if needed. 09/19/2021 Active oxyCODONE (ROXICODONE) 5 mg immediate release tabletIndications:Blanche sed fracture of one rib of right side, initial encounter,Hematoma of right buttock Take 1-2 Tablets (5-10 mg) by mouth every 6 hours if needed for Pain. 10 Tablet 07/07/2024 Active lidocaine 5 % topical patchIndications:Clos ed fracture of one rib of right side, initial encounter Apply 1 patch to painful area of skin for up to 12 hours within a 24-hour period. 5 Patch 07/07/2024 Active Active Problems Problem Noted Date Diagnosed Date Cervical radiculopathy 05/17/2018 Major depressive disorder with single episode Overview (12/16/2020): Depression Major NOS Encounters Date Type Department Care Team Description 07/07/2024 11:52 AM MAP DRAFTER - 07/07/2024 2:10 PM MAP DRAFTER Emergency [facility] [address], [place] [address] Nilton Dominguez PA Closed fracture of one rib of right side, initial encounter (Primary Dx); Hematoma of right buttock; Fall from ladder, initial encounter Discharge Disposition: Home Self Care 07/07/2024 Travel from Last 3 Months Immunizations Name Administration Dates Next Due Influenza A (H1N1), Inactivated (Age >=3 Years) 08/25/2009 Influenza, IIV3 (Age >=3 years) 05/22/2012,06/07 Tdap 04/26/2007 Social History Tobacco Use Types Packs/Day Years Used Date Smoking Tobacco: Never Smokeless Tobacco: Never Tobacco Cessation:Counseling Given: Not Answered Alcohol Use Standard Drinks/Week Comments Never 0 (1 standard drink = 0.6 oz pur e alcohol) Sex and Gender Information Value Date Recorded Sex Assigned at Not on file Gender Identity Not on file Sexual Orientation Not on file Obstetrics History Last Filed Vital Signs Vital Sign Reading Time Taken Comments Blood Pressure 113/73 07/07/2024 11:55 AM MAP DRAFTER Pulse 100 07/07/2024 11:55 AM MAP DRAFTER Temperature 36.7 ??C (98.1 ??F) 07/07/2024 11:[address] Respiratory Rate 20 07/07/2024 11:55 AM MAP DRAFTER Oxygen Saturation 95% 07/07/2024 11:55 AM MAP DRAFTER Inhaled Oxygen Concentration - - Weight 70.3 kg (155 lb) 07/07/2024 11:55 AM MAP DRAFTER Height 162.6 cm (5' 4) 07/07/2024 11:55 AM MAP DRAFTER Body Mass Index 26.61 07/07/2024 11:55 AM MAP DRAFTER Plan of Treatment Health Maintenance Due Date Last Done Comments Depression screening for age 12+ 1974 HIV for age 15-65 1977 BMI (ht and wt on same day) for age 18+ 1980 Hepatitis C screening for age 18-79 1980 Lipids for age 45-75 2007 Mammogram for age 45-75 2007 Zoster (shingles) series for age 50+ (1 of 2) 2012 Tetanus booster 04/26/2017 04/26/2007 Pap test for age 21-65 04/04/2024 , 04/04/2021, 02/21/2018, Additional history exists Influenza for age 50-64 05/04/2024 05/22/20 12, 08/25/2009, 06/07/2009 Colonoscopy through age 75 02/09/2033 02/09/2023 Tdap Completed 04/26/2007 COVID-19 vaccine series Completed 05/27/20 24, 06/02/2022, 08/22/2021, Additional history exists Pneumococcal series for age 6-64 Aged Out No longer eligible based on patient's age to complete this topic Procedures Procedure Name Priority Date/Time Associated Diagnosis Comments XR ELBOW 3 VIEWS RIGHT STAT 07/07/2024 1:17 PM MAP DRAFTER XR HIP 2 OR 3 VIEWS W PELVIS RIGHT STAT 07/07/2024 1:17 PM MAP DRAFTER BASIC METABOLIC PANEL STAT 07/07/2024 12:16 PM MAP DRAFTER CBC W PLT NO DIFF STAT 07/07/2024 12: 16 PM MAP DRAFTER COLONOSCOPY 02/09/2023 11:45 AM CDT CONVENTION SERVICES MANAGER THIN PREP PAP SCREEN IMAGED Routine 04/04/2021 3:30 PM CDT from Last 3 Months or Most Recently Relevant to Health Maintenance Results * XR ELBOW 3 VIEWS RIGHT (07/07/2024 1:17 PM MAP DRAFTER) Anatomical Region Laterality Modality ELBOW R Digital Radiogra phy Nilton Ha Dolly JAMES GENERAL IMAGI NG * XR HIP 2 OR 3 VIEWS W PELVIS RIGHT (07/07/2024 1:17 PM MAP DRAFTER) Anatomical Region Laterality Modality HIPS, HIPR, Pelvis Digital Radio graphy Nilton Ha Dolly [facility] GENER[facility] IMAGI NG * CBC W PLT NO DIFF (07/07/2024 12:16 PM MAP DRAFTER) WHITE BLOOD COUNT 8.3 4.5 - 11.0 thou/cu mm 07/07/2024 12:22 PM [facility] RED BLOOD COUNT 4.33 4.00 - 5.20 mil/cu mm 07/07/2024 12:22 PM [facility] HEMOGLOBIN 12.9 12.0 - 16.0 g/dL 07/07/2024 12:22 PM [facility] HEMATOCRIT 38.8 33.0 - 51.0 % 07/07/2024 12:22 PM [facility] MCV 90 80 - 100 fL 07/07/2024 12:22 PM [facility] MCH 29.8 26.0 - 34.0 pg 07/07/2024 12:22 PM [facility] MCHC 33.2 32.0 - 36.0 g/dL 07/07/2024 12:22 PM [facility] RDW 13.8 11.5 - 15.5 % 07/07/2024 12:22 PM [facility] PLATELET COUNT 290 140 - 440 thou/cu mm 07/07/2024 12:22 PM [facility] MPV 10.2 6.5 - 11.0 fL 07/07/2024 12:22 PM [facility] Blood BLOOD SPECIMEN / Unknown Venipuncture / Unknown 07/07/2024 12:16 PM MAP DRAFTER 07/07/2024 12:19 PM MAP DRAFTER Nilton JAMES HEMATOLOGY [facility] [address] [address] * (ABNORMAL) BASIC METABOLIC PANEL (07/07/2024 12:16 PM MAP DRAFTER) SODIUM 139 136 - 145 mmol/L 07/07/2024 12:38 PM [facility] POTASSIUM 4.4 3.5 - 5.1 mmol/L 07/07/2024 12:38 PM [facility] CHLORIDE 103 98 - 107 mmol/L 07/07/2024 12:38 PM [facility] CO2,TOTAL 24 22 - 29 mmol/L 07/07/2024 12:38 PM [facility] ANION GAP 12 5 - 18 07/07/2024 12:38 PM [facility] GLUCOSE 101(H) 70 - 99 mg/dL 07/07/2024 12:38 PM [facility] CALCIUM 9.2 8.8 - 10.2 mg/dL 07/07/2024 12:38 PM [facility] BUN 14 8 - 23 mg/dL 07/07/2024 12:38 PM [facility] CREATININE 0.85 0.50 - 0.90 mg/dL 07/07/2024 12:38 PM [facility] BUN/CREAT RATIO 16 10 - 20 12:38 PM [facility] eGFR 78(L) >90 mL/min/1.7 3m2 07/07/2024 12:38 PM [facility] Comment:As of 2021, eG FR is calculated by the CKD-EPI creatinine equation without race adjustment. ??eGFR can be influenced by muscle mass, exercise, and diet. ??The reported eGFR is an estimation only and is only applicable if the renal function is stable. Blood BLOOD SPECIMEN / Unknown Venipuncture / Unknown 07/07/2024 12:16 PM MAP DRAFTER 07/07/2024 12:19 PM MAP DRAFTER Nilton JAMES CHEMISTRY [facility] [address] [phone] * COLONOSCOPY (02/09/2023 11:45 AM CDT) 02/09/2023 11:4 5 AM CDT Narrative Transcriptions Dre Torres MD - 02/09/2023 12:07 PM CDT Patient Name: Tamia Machado Procedure Date: 02/09/2023 Gender: Female Date of : 1960 Admit Type: Ambulatory Procedure: Colonoscopy Proceduralist: Dre Torres MD Indications/Pre-Op Diagnosis: Screening for colorectal malignantneoplasm Medications: Monitored Anesthesia Care Procedure Description: The procedure, indications, potential complications, (bleeding, perforation, infection, adverse medication reaction, missed lesionsor polyps) and alternatives available were explained to the patient, who appeared to understand and indicated this. Opportunity for questionswas provided and informed consent obtained. The endoscope [id number] was passed through the anus andadvanced to the cecum, identified by appendiceal orifice and ileocecal valve.The colonoscopy was performed without difficulty. The patient toleratedthe procedure well. The quality of the bowel preparation was evaluatedusing the BBPS (Holden Bowel Preparation Scale) with scores of: Right Colon= 3, Transverse Colon = 3 and Left Colon = 3 (entire mucosa seen wellwith no residual staining, small fragments of stool or opaque liquid). The total BBPS score equals 9. Complications: No immediate complications. Estimated Blood Loss & Specimen: Estimated blood loss: none. Specimen collected: None Findings: The perianal and digital rectal examinations were normal. Multiple small-mouthed diverticula were found in the sigmoid colon. The exam was otherwise without abnormality on direct and retroflexion views. Impressions/Post-Op Diagnosis: - Diverticulosis in the sigmoid colon. - The examination was otherwise normal on direct and retroflexionviews. - No specimens collected. Recommendation: - Repeat colonoscopy in 10 years for screening purposes. Moderate Sedation: MAC Dre Torres MD 02/09/2023 12:06:56 PM This report has been signed electronically. Note Initiated On: 02/09/2023 11:45 AM Dre Torres MD PROCEDURE ORD * CONVENTION SERVICES MANAGER THIN PREP PAP SCREEN IMAGED (04/04/2021 3:30 PM CDT) Case Report Gynecologic Cytology Report ? Case: [id number] ? Authorizing Provider: ??Torrey Nesbitt MD ?Collected: ? 04/04/2021 1530 ? Ordering Location: ? [facility] ?Received: ?04/06/2021 0750 ? First Screen: ?Matthias Monroy ? Specimen: ?CONVENTION SERVICES MANAGER ThinPrep Vial Screening, Cervical/Vaginal ? 04/15/2021 3:13 PM CDT [facility] INTERPRETATION/ RESULT NEGATIVE FOR INTRAEPITHELIAL LESION OR MALIGNANCY (NIL) (none) 04/15/2021 3:[address] [facility] IMEN ADEQUACY Satisfactory for evaluation Endocervical component present Scant cellularity 04/15/2021 3:[address] [facility] HPV REQUEST HPV and PAP 04/15/2021 3:13 PM T [facility] Last Pap Date 02/21/2018 04/15/2021 3:[address] [facility] Last Pap Result NIL 3:13 PM T [facility] Additional Information 04/15/2021 3:13 PM [facility] Comment: Interpreted at [facility] Laboratory - [address], [place] [address] Automated Review Successful 04/15/2021 3:[address] [facility] Comment:Specimen processed s uccessfully by automated tier in device, ThinPrep Imaging System, [employer] ANCILLARY TESTING CONVENTION SERVICES MANAGER HPV Ordered, Please see separate report 04/15/2021 3:13 PM [facility] Note The pap test is a screening technique, not a diagnostic procedure. It is used primarily to screen for squamous cancers and precursor lesions. Published studies have shown that it is subject to both false negative and false positive results. The pap test should not be used as the sole means to diagnose or exclude pre-malignant and malignant lesions. 04/15/2021 3:[address] [facility] Other (Cervical/Vagina l) 04/04/2021 3:30 PM CDT 04/06/2021 7:50 AM CDT Torrey Nesbitt MD PATHOLOGY/CYTOLOGY [facility] [address] [place] [address], [place] from Last 3 Months or Most Recently Relevant to Health Maintenance Advance Directives * Full Code (Latest Code Status on File) Date Activated Date Inactivated Comments 02/09/2023 6:14 AM 02/09/2023 3:37 PM Question Answer Comments Code Status Discussion: Unable to Assess Preferences, Provider to review later * Full Code Date Activated Date Inactivated Comments 09/19/2012 6:22 AM 09/19/2012 9:22 AM Care Teams Plater Barrel Relationship Specialty Start Date End Date Pcp, No . PCP - General 07/07/24
--- OUTSIDE RECORDS SUMMARY | 2024-07-17 11:32 | XMS_ITS | Encounter Summary ---
Author Organization [facility] Address [address] [place] [address] Care Team Providers Care Manager Pediatric Name Role Phone Unassigned, Pcp Primary Care Provider Unavailabl e Reason for Referral * Outpatient (Routine) - Closed Specialty Diagnoses / Procedures Referred By Contac t Referred To Contact Spine Diagnoses Pain Back Torrey Nesbitt M.D. Phone: tel: fax: [facility] Referral ID Status Reason Start Date Expiration Date Visits Re quested Visits Authorized [id number] Closed 01/15/2018 07/14/2018 1 1 Encounter Details Date Type Department Care Team (Late st Contact Info) Description 01/15/2018 [facility] [address] [place] [address] Torrey Nesbitt M.D. [address] [place] [phone] Pain Back (Primary Dx) Social History Tobacco Use Types Packs/Day Years Used Date Smoking Tobacco: Former Comments Unknown Sex and Gender Information Value Date Recorded Sex Assigned at Not on file Legal Sex Female 4:19 AM GAME AND FISH PROTECTOR Gender Identity Not on file Sexual Orientation Not on file documented as of this encounter Plan of Treatment Scheduled Referrals Name Type Priority Associated Diagnoses Orde r Schedule Spine Center Referral Outpatient Referral Routine Pain Back Expected: 01/15/2018 (Approximate), Expires: 01/15/2021 documented as of this encounter Visit Diagnoses Diagnosis Pain Back- Primary documented in this encounter Additional Health Concerns Infection Onset Date Last Indicated Resolved Time COVID19 Pending 10/28/2021 10/28/2021 10/29/2021 1 2:16 AM GAME AND FISH PROTECTOR COVID19 Pending 11/01/2021 11/01/2021 11/01/2021 1 1:03 PM GAME AND FISH PROTECTOR COVID19 05/09/2022 05/09/2022 05/29/2022 4:45 AM CDT COVID19 Pending 04/16/2023 04/16/2023 04/16/2023 7 :17 PM CDT Assessment Noted Time PHQ-9 Depression Total Score: 3 12/12/19 15 12:26 PM CDT documented as of this encounter Care Teams Manager Pediatric Relationship Specialty Start Date End Date Unassigned, Pcp PCP - General Family Medicine 10/29/21 documented as of this encounter
--- OUTSIDE RECORDS SUMMARY | 2024-07-17 11:32 | XMS_ITS | Encounter Summary ---
Author Organization [facility] Address [address] [place] [address] Care Team Providers Care Shorthand Teacher Name Role Phone Unassigned, Pcp Primary Care Provider Unavailabl e Encounter Details Date Type Department Care Team (Late st Contact Info) Description 09/04/2018 [facility] [address] [place] [address] Torrey Nesbitt M.D. [address] [place] [address] Pain Back (Primary Dx) Social History Tobacco Use Types Packs/Day Years Used Date Smoking Tobacco: Former Cigarettes Q uit: 02/15/2011 Smokeless Tobacco: Never Comments Unknown Sex and Gender Information Value Date Recorded Sex Assigned at Not on file Legal Sex Female 4:19 AM COATER BRAKE LININGS Gender Identity Not on file Sexual Orientation Not on file documented as of this encounter Plan of Treatment Not on file documented as of this encounter Visit Diagnoses Diagnosis Pain Back- Primary documented in this encounter Additional Health Concerns Infection Onset Date Last Indicated Resolved Time COVID19 Pending 10/28/2021 10/28/2021 10/29/2021 1 2:16 AM COATER BRAKE LININGS COVID19 Pending 11/01/2021 11/01/2021 11/01/2021 1 1:03 PM COATER BRAKE LININGS COVID19 05/09/2022 05/09/2022 05/29/2022 4:45 AM CDT COVID19 Pending 04/16/2023 04/16/2023 04/16/2023 7 :17 PM CDT Assessment Noted Time PHQ-9 Depression Total Score: 3 12/12/19 15 12:26 PM CDT documented as of this encounter Care Teams Shorthand Teacher Relationship Specialty Start Date End Date Unassigned, Pcp PCP - General Family Medicine 10/29/21 documented as of this encounter
== END 2024-07-17 11:29 | disposition home or self-care (01) ==
LOC: LKVREF 11:30
PROVIDERS: PCP Family Medicine; Visit Provider Family Medicine
DX: Z00.00 Encounter for general adult medical examination without abnormal findings (principal); E66.3 Overweight; R53.83 Other fatigue; E78.00 Pure hypercholesterolemia, unspecified; Z79.899 Other long term (current) drug therapy
CPT/HCPCS: 80053; 80061

== ENCOUNTER 2024-09-26 14:47 | Outpatient (CLI) | payer OTHER, SELFPAY ==
--- NOTE | 2024-09-26 15:20 | CRLHL7_ITS ---
For Patients: As a result of the Century Cures Act, medical imaging exams and procedure reports are released immediately into your electronic medical record. You may view this report before your referring provider. If you have questions, please contact your health care provider. BILATERAL SCREENING MAMMOGRAM WITH COMPUTER-AIDED DETECTION AND TOMOSYNTHESIS TECHNIQUE: CC and MLO views were obtained. These mammographic images have been obtained using full-field digital technique. These mammographic images were interpreted with the benefit of computer-aided detection. Breast Tomosynthesis was used in this interpretation. COMPARISON FILM: 08/15/23, 07/14/22, 04/29/21. FINDINGS: There are scattered areas of fibroglandular density. IMPRESSION: There is no radiographic evidence for malignancy. ASSESSMENT: BI-RADS Category 1: Negative RECOMMENDATION: Routine screening mammogram in 1 year. A lay language report of this examination will be provided to the patient. Carl Vazquez M.D. Diagnostic Radiologist [email or web address] SP/Dictated by: Carl Vazquez MD @ 09/29/2024 11:50:00 AM (Electronically Signed)
== END 2024-09-26 14:48 | disposition home or self-care (01) ==
LOC: MAMMO 14:48
PROVIDERS: PCP Family Medicine; Visit Provider Family Medicine
DX: Z12.31 Encounter for screening mammogram for malignant neoplasm of breast (principal)
CPT/HCPCS: 77063; 77067

== ENCOUNTER 2024-10-09 11:18 | Outpatient (CLI) | payer OTHER, SELFPAY | END 2024-10-09 11:19 | disposition home or self-care (01) | LOC: LKVREF 11:21 | PROVIDERS: PCP Family Medicine; Visit Provider Family Medicine | DX: Z12.4 Encounter for screening for malignant neoplasm of cervix (principal) | CPT/HCPCS: 88141; 88142 ==

== ENCOUNTER 2024-11-27 16:43 | Emergency (ER) | payer OTHER, SELFPAY ==
--- OUTSIDE RECORDS SUMMARY | 2024-11-27 16:45 | XMS_ITS | Encounter Summary ---
Author Organization [facility] Address [address] [place] [address] Care Team Providers Care Scrip Clerk Name Role Phone None Reported, Pcp Primary Care Provider Unavail able Encounter Details Date Type Department Care Team (Late st Contact Info) Description 09/04/2018 [facility] [address] [place] [address] Torrey Nesbitt M.D. [address] [place] [phone] Pain Back (Primary Dx) Social History Tobacco Use Types Packs/Day Years Used Date Smoking Tobacco: Former Cigarettes Q uit: 02/15/2011 Smokeless Tobacco: Never Comments Unknown Sex and Gender Information Value Date Recorded Sex Assigned at Not on file Legal Sex Female 4:19 AM PHOTOGRAPHERS' MODEL Gender Identity Not on file Sexual Orientation Not on file documented as of this encounter Plan of Treatment Not on file documented as of this encounter Visit Diagnoses Diagnosis Pain Back- Primary documented in this encounter Additional Health Concerns Infection Onset Date Last Indicated Resolved Time COVID19 Pending 10/28/2021 10/28/2021 10/29/2021 1 2:16 AM PHOTOGRAPHERS' MODEL COVID19 Pending 11/01/2021 11/01/2021 11/01/2021 1 1:03 PM PHOTOGRAPHERS' MODEL COVID19 05/09/2022 05/09/2022 05/29/2022 4:45 AM CDT COVID19 Pending 04/16/2023 04/16/2023 04/16/2023 7 :17 PM CDT Assessment Noted Time PHQ-9 Depression Total Score: 3 12/12/19 15 12:26 PM CDT documented as of this encounter Care Teams Scrip Clerk Relationship Specialty Start Date End Date None Reported, Pcp PCP - General 07/11/24 documented as of this encounter
--- OUTSIDE RECORDS SUMMARY | 2024-11-27 16:45 | XMS_ITS | Encounter Summary ---
Author Organization [facility] Address [address] [place] [address] Care Team Providers Care Construction Area Manager Name Role Phone None Reported, Pcp Primary Care Provider Unavail able Reason for Referral * Outpatient (Routine) - Closed Specialty Diagnoses / Procedures Referred By Contac t Referred To Contact Spine Diagnoses Pain Back Torrey Nesbitt M.D. Phone: tel: fax: [facility] Referral ID Status Reason Start Date Expiration Date Visits Re quested Visits Authorized [id number] Closed 01/15/2018 07/14/2018 1 1 Encounter Details Date Type Department Care Team (Late st Contact Info) Description 01/15/2018 [facility] [address] [place] [address] Torrey Nesbitt M.D. [address] [place] [phone] Pain Back (Primary Dx) Social History Tobacco Use Types Packs/Day Years Used Date Smoking Tobacco: Former Comments Unknown Sex and Gender Information Value Date Recorded Sex Assigned at Not on file Legal Sex Female 4:19 AM LINK WIRE FABRIC MACHINE OPERATOR Gender Identity Not on file Sexual Orientation [...] Pending 10/28/2021 10/28/2021 10/29/2021 1 2:16 AM LINK WIRE FABRIC MACHINE OPERATOR COVID19 Pending 11/01/2021 11/01/2021 11/01/2021 1 1:03 PM LINK WIRE FABRIC MACHINE OPERATOR COVID19 05/09/2022 05/09/2022 05/29/2022 4:45 AM CDT COVID19 Pending 04/16/2023 04/16/2023 04/16/2023 7 :17 PM CDT Assessment Noted Time PHQ-9 Depression Total Score: 3 12/12/19 15 12:26 PM CDT documented as of this encounter Care Teams Construction Area Manager Relationship Specialty Start Date End Date None Reported, Pcp PCP - General 07/11/24 documented as of this encounter
--- OUTSIDE RECORDS SUMMARY | 2024-11-27 16:45 | XMS_ITS | Clinical Summary ---
Author Organization [facility] Address [address] [place] [id number] Care Team Providers Care Animal Physiology Teacher Name Role Phone Pcp, No Primary Care Provider Unavailabl e Allergies Active Allergy Reactions Criticality Noted Date Comments Bee Venom Protein (Honey Bee) Other - Describe In Comment Field 05/17/2018 Skin swelling and hardness Medications LORazepam (ATIVAN) 1 mg tabletIndicatio ns:anxiety Take 1 mg by mouth 3 times daily if needed. Indications: ANXIETY Active buPROPion (WELLBUTRIN XL) 150 mg Extended-Releas e tablet Take 150 mg by mouth once daily in the afternoon. 09/19/2021 Active venlafaxine extended release (VENLAFAXINE XR, [facility],) 75 mg extended release tablet Take 75 mg by mouth once daily in the afternoon. Active valACYclovir (VALTREX) 1 gram tablet Take 1,000 mg by mouth two times daily. Active traZODone (DESYREL) 50 mg tablet Take 50 mg by mouth once daily in the afternoon. 09/19/2021 Active oxyCODONE-aceta minophen (PERCOCET) 5-325 mg per tablet Take 2 Tablets by mouth every 4 hours if needed. Active meloxicam 15 mg tablet Take 15 mg by mouth once daily. 09/19/2021 Active cyclobenzaprine (FLEXERIL) 10 mg tablet Take 10 mg by mouth 3 times daily if needed. 09/19/2021 Active oxyCODONE (ROXICODONE) 5 mg immediate release tabletIndicatio ns:Closed fracture of one rib of right side, initial encounter,Hemat larry of right buttock Take 1-2 Tablets (5-10 mg) by mouth every 6 hours if needed for Pain. 10 Tablet 07/07/2024 Active lidocaine 5 % topical patchIndication s:Closed fracture of one rib of right side, initial encounter Apply 1 patch to painful area of skin for up to 12 hours within a 24-hour period. 5 Patch 07/07/2024 Active Active Problems Problem Noted Date Diagnosed Date Cervical radiculopathy 05/17/2018 Major depressive disorder with single episode Overview (12/16/2020): Depression Major NOS Immunizations Immunization Administration Dates Next Due Influenza A (H1N1), Inactivated (Age >=3 Years) 08/25/2009 Influenza, IIV3 (Age >=3 years) 05/22/2012,06/07 Tdap 04/26/2007 Social History Tobacco Use Types Packs/Day Years Used Date Smoking Tobacco: Never Smokeless Tobacco: Never Tobacco Cessation:Counseling Given: Not Answered Alcohol Use Standard Drinks/Week Comments Never 0 (1 standard drink = 0.6 oz pur e alcohol) Interpersonal Safety Answer Date Record ed Are you being hit, kicked, p ushed or yelled at (see row info)? No 07/07/2024 Interpersonal Safety Abuse 12 - 18 Not on file 07/07/2024 Interpersonal Safety Ambulatory Vulnerability No t on file 07/07/2024 Comments No Sex and Gender Information Value Date Recorded Sex Assigned at Not on file Legal Sex Female 7:00 AM AUTOMATIC OUTSOLE CUTTER Gender Identity Not on file Sexual Orientation Not on file Obstetrics History Last Filed Vital Signs Vital Sign Reading Time Taken Comments Blood Pressure 113/73 07/07/2024 11:55 AM AUTOMATIC OUTSOLE CUTTER Pulse 100 07/07/2024 11:55 AM AUTOMATIC OUTSOLE CUTTER Temperature 36.7 C (98.1 F) 07/07/2024 11:55 AM AUTOMATIC OUTSOLE CUTTER Respiratory Rate 20 07/07/2024 11:55 AM AUTOMATIC OUTSOLE CUTTER Oxygen Saturation 95% 07/07/2024 11:55 AM AUTOMATIC OUTSOLE CUTTER Inhaled Oxygen Concentration - - Weight 70.3 kg (155 lb) 07/07/2024 11:55 AM AUTOMATIC OUTSOLE CUTTER Height 162.6 cm (5' 4) 07/07/2024 11:55 AM AUTOMATIC OUTSOLE CUTTER Body Mass Index 26.61 07/07/2024 11:55 AM AUTOMATIC OUTSOLE CUTTER Plan of Treatment Health Maintenance Due Date Last Done Comments Depression screening for age 12+ 1974 HIV for age 15-65 1977 BMI (ht and wt on same day) for age 18+ 1980 Hepatitis C screening for ag e 18-79 1980 Lipids for age 45-75 2007 Mammogram for age 45-75 2007 Pneumococcal series for age 50+ (1 of 1 - PCV) 2012 Zoster (shingles) series for age 50+ (1 of 2) 2012 Tetanus booster 04/26/2017 04/26/2007 Pap test for age 21-65 04/04/2024 , 04/04/2021, 02/21/2018, Additional history exists Influenza Vaccine (#1) 2024 05/22/2012, 2008 Colonoscopy through age 75 02/09/2033 02/09/2023 RSV vaccine for adults or (1 - 1-dose 75+ series) 2037 Tdap Completed 04/26/2007 COVID-19 vaccine series Completed 05/27/20 24, 06/02/2022, 08/22/2021, Additional history exists Procedures Procedure Name Priority Date/Time Associated Diagnosis Comments COLONOSCOPY 02/09/2023 11:45 AM CDT INDUSTRY ANALYST THIN PREP PAP SCREEN IMAGED Routine 04/04/2021 3:30 PM CDT from Last 3 Months or Most Recently Relevant to Health Maintenance Results * COLONOSCOPY (02/09/2023 11:45 AM CDT) 02/09/2023 11:4 5 AM CDT Narrative Transcriptions Melissa, Dre Bhat MD - 02/09/2023 12:07 PM CDT Patient [...] provided and informed consent obtained. The endoscope [id number] was passed through the anus andadvanced to the cecum, identified by appendiceal orifice and ileocecal valve.The colonoscopy was performed without difficulty. The patient toleratedthe procedure well. The quality of the bowel preparation was evaluatedusing the BBPS ([place] Bowel Preparation Scale) with scores of: Right [...] 11:45 AM Dre Torres MD PROCEDURE ORD Final Res ult * INDUSTRY ANALYST THIN PREP PAP SCREEN IMAGED (04/04/2021 3:30 PM CDT) Case Report Gynecologic Cytology Report Case: [id number] Authorizing Provider: Torrey Nesbitt MD Collected: 04/04/2021 1530 Ordering Location: [facility] Received: 04/06/2021 0750 First Screen: Matthias Monroy Specimen: INDUSTRY ANALYST ThinPrep Vial Screening, Cervical/Vaginal 04/15/2021 3:[address] [facility] [employer] [facility] INTERPRETATION/ RESULT NEGATIVE FOR INTRAEPITHELIAL LESION OR MALIGNANCY (NIL) (none) 04/15/2021 3:13 PM CDT [facility] IMEN ADEQUACY Satisfactory for evaluation Endocervical component present Scant cellularity 04/15/2021 3:13 PM CDT [facility] HPV REQUEST HPV and PAP 04/15/2021 3:13 PM CDT [facility] Last Pap Date 02/21/2018 04/15/2021 3:13 PM CDT [facility] Last Pap Result NIL 3:13 PM CDT [facility] Additional Information 04/15/2021 3:13 PM CDT [facility] Comment: Interpreted at [facility] - [address], [place] [address] Automated Review Successful 04/15/2021 3:13 PM CDT [facility] Comment:Specimen processed s uccessfully by automated internal investigator device, ThinPrep Imaging System, [employer] ANCILLARY TESTING INDUSTRY ANALYST HPV Ordered, Please see separate report 04/15/2021 3:13 PM CDT [facility] Note The pap test is a screening technique, not a diagnostic procedure. It is used primarily to screen for squamous cancers and precursor lesions. Published studies have shown that it is subject to both false negative and false positive results. The pap test should not be used as the sole means to diagnose or exclude pre-malignant and malignant lesions. 04/15/2021 3:[address] [facility] Other (Cervical/Vagina l) 04/04/2021 3:30 PM CDT 04/06/2021 7:50 AM CDT us Torrey Nesbitt MD PATHOLOGY/CYTOLOGY Final Resul t [facility] [address] [place] [address], [place] from Last 3 Months or Most Recently Relevant to Health Maintenance Insurance [facility] Advance Directives * Full Code (Latest Code Status on File) Date Activated Date Inactivated Comments 02/09/2023 6:14 AM 02/09/2023 3:37 PM Question Answer Comments Code Status Discussion: Unable to Assess Preferences, Provider to review later * Full Code Date Activated Date Inactivated Comments 09/19/2012 6:22 AM 09/19/2012 9:22 AM Care Teams Animal Physiology Teacher Relationship Specialty Start Date End Date Pcp, No . PCP - General 07/07/24
--- OUTSIDE RECORDS SUMMARY | 2024-11-27 16:45 | XMS_ITS | Clinical Summary ---
Author Organization [facility] Address [address] [place] [address] Care Team Providers Care Wastewater Technician Name Role Phone None Reported, Pcp Primary Care Provider Unavail able Source Comments Patient records contain information from all sites at [facility]. For routine questions regarding patient records, call [phone] during business hours, M-F 8:00 AM - 5:00 PM Central Time. Record requests for emergency care only can be directed to [phone] at any time.[facility] Allergies Active Allergy Reactions Criticality Noted [...] 04/14/2008 Overview (01/23/2017): Depression Major NOS Immunizations Immunization Administration Dates Next Due DTaP (Infanrix, Tripedia) [...] on file Legal Sex Female 4:19 AM SKILL TRAINING PROGRAM COORDINATOR Gender Identity Not on file Sexual Orientation Not on file Last Filed Vital Signs Vital Sign Reading Time Taken Comments Blood Pressure 130/83 04/16/2023 5:59 PM CDT Pulse 102 04/16/2023 5:59 PM CDT Temperature 37.6 C (99.7 F) 04/16/2023 5:59 PM CDT Respiratory Rate 16 02/07/2023 2:14 PM CDT [...] HIV Screening 1960 Hepatitis C Screening 1960 Pneumococcal vaccine (50+ years) (1 of 1 - PCV) 2012 Mammogram 02/06/2016 02/05/2015, 01/2014, 01/30/2013, Additional history exists Lipid (Cholesterol) Screening 02/06/2020 02/05/2015, 02/05/2014, 02/03/2013 Depression Monitoring (PHQ-9) 06/09/2023 02/07/2023 Cervical/Vaginal Cancer Screening 04/04/2024 04/04/2021, 02/21/2018, 02/07/2016, Additional history exists Depression Monitoring (PHQ-9 for quality tracking) 09/03/2024 Fasting Glucose for Diabetes Screening 07/07/2027 07/07/2024, 02/05/2015, 02/05/2014, Additional history exists Colonoscopy 02/09/2033 02/09/2023, 09/19/2012 Colorectal Cancer Screening 02/09/2033 DTaP,Tdap,and Td Vaccines (5 - Td or Tdap) 03/27/2034 03/27/2024, 12/11/2014, 04/26/2007, Additional history exists Zoster Vaccines Completed 02/12/2019, 11/18/2018 COVID-19 Vaccine Completed 05/27/2024, , 06/02/2022, Additional history exists Influenza Vaccine Completed 05/27/2024, , 05/26/2022, Additional history exists IPV Vaccines Aged Out No longer eligi ble based on patient's age to complete this topic Procedures Procedure Name Priority Date/Time Associated Diagnosis Comments GLUCOSE, FASTING, S/P Routine 02/05/2015 11:09 AM CDT LIPID PANEL, S Routine 02/05/2015 11:09 AM CDT BI BREAST SCREENING BILATERAL Routine 02/05/2015 10:43 AM CDT PATHOLOGY SEMICONDUCTOR ASSEMBLER CYTOLOGY Routine 02/05/2015 12:00 AM CDT from Last 3 Months or Most Recently Relevant to Health Maintenance Results * Lipid Panel (02/05/2015 11:09 AM CDT) [...] for FH and FDB is available through [facility]: FH/ADH Genetic Reflex Panel (test ADHP). Acquired (non-genetic) causes of markedly increased LDL cholesterol include cholestatic liver disease due to the presence of LpX. If a genetic form of hypercholesterolemia is suspected, family studies including biochemical testing for lipids (total cholesterol,triglycerides, LDL cholesterol and HDL cholesterol) are recommended. Please contact the laboratory at or the on-line test catalog at [employer] for information about how to order these [...] BLOOD ADD-ON Final Resul t POWERCHART * Glucose, Fasting (02/05/2015 11:09 AM CDT) Glucose, Fasting, S 92 70 - 99 MGDL POWERCHART Blood 02/05/2015 11:0 9 AM CDT us Torrey Nesbitt M.D. LAB BLOOD NON ADD-ON Final R esult POWERCHART * BI Breast Screening Bilateral (02/05/2015 10:43 AM CDT) Anatomical Region Laterality Modality Breast Bilateral Mammography 02/05/2015 10:4 3 AM CDT Impressions 02/05/2015 1:04 PM CDT Recommendations: I recommend a follow-up mammogram in [...] change. Procedure Note Carl Tierney M.D. / ProviderBill M.D. - 01/10/2017 EXAM: MA Mammo Screening [...] performed on the digital mammogram images. Venus Durán R.T.(R), R.T.(R)(M) IMG BI NH OCEDURES Edited Result - Final * Pathology SEMICONDUCTOR ASSEMBLER Cytology (02/05/2015 12:00 AM CDT) 02/05/2015 Narrative [facility] - 02/15/2015 8:44 AM CDT [facility] [address] [address] [place] [address] Patient Name: OTONIEL BONILLA Collected: 02/05/2015 Address: City/State/Zip: [address] [place], [place] [id number] Received: Reported: 02/08/2015 02/15/2015 Soc. Sec. #: /Age/Sex 1960 (Age: 54) F Physician(s): DAVE NESBITT MD Copy To: [facility] [id number], [place] [address] CYTOPATHOLOGY SEMICONDUCTOR ASSEMBLER REPORT FINAL CYTOLOGIC DIAGNOSIS Pap Smear - ThinPrep: NEGATIVE FOR INTRAEPITHELIAL LESION OR MALIGNANCY PRESENCE OR ABSENCE OF ENDOCERVICAL COMPONENT CANNOT BE DETERMINED DUE TO ATROPHY. SATISFACTORY SPECIMEN FOR EVALUATION. Electronically Signed Out By ajw/02/15/2015 MARVEL Jaffezchano ZURITA(ASCP) The Pap test is a screening procedure and, as such, is subject to both false positive and false negative results as evidenced by published data. It is not a diagnostic test and results should be interpreted in the context of the patient's history and other clinical findings. Obtaining periodic Pap tests may help to minimize the consequences of any false negatives that may occur. SPECIMEN(S) RECEIVED: Pap Smear - ThinPrep CLINICAL HISTORY: Date of Last PAP: 02/05/2014 Date of Last Menstrual Period: 11/2013 Menstrual History: Postmenopausal Hormonal History: No hormonal therapy Other Clinical Conditions: HPV TYPING REQUESTED: IF ASCUS us Torrey Nesbitt M.D. LAB PAP COPATH ORDERABLES Fi nal Result [facility] from Last 3 Months or Most Recently Relevant to Health Maintenance Insurance [facility] [address] [id number] Care Teams Wastewater Technician Relationship Specialty Start Date End Date None Reported, Pcp PCP - General 07/11/24
[2024-11-27 17:34] VITALS: BP 123/84; PULSE 88; RESP 18; TEMP 36.9; O2SAT 99; BMI 25.2
--- NOTE | 2024-11-27 18:03 | ED.GENADULT ---
HPI - General Adult General Time Seen by Provider: 18:03 Date Seen: 11/27/24 Chief complaint: Psychiatric Problem/Disorder Stated complaint: Mental health Time Seen by Provider: 11/27/24 17:59 Source: patient and RN notes reviewed Mode of arrival: ambulatory Limitations: no limitations History of Present Illness HPI narrative: This patient was seen on camera by a security wondering around. She was brought over to the ER. She was reportedly at a spine clinic appointment today. She states the doctor told her to talk to social media content manager, she states she maybe got confused. She does have lumbar radiculopathy, made a appointment today. She did see someone in our spine clinic today. She notes that they started talking, started to review that she feels her ex- is maybe pain the neighbor lady to spy on her. She feels that this lady may come into her house, feels that they have cameras on her. She does not feel that she can get a new phone or order anything as they will know that she has done it. She states she has a flip phone and feels that they have hacked into this. I had reviewed her history, she is seen regularly in our clinic system. She does get Ativan for anxiety. She had some Percocets acutely awhile ago for lumbar radiculopathy. She recently got started on duloxetine reportedly for her back. She is also on phentermine for weight loss. She also talks to me about her cholesterol medicine, states she talked to the doctor at her back appointment today. He reviewed with her that this cholesterol medicine was safe. She is worried about going backwards and going off of it, you should not do that. She was worried about getting dementia from this cholesterol medicine, he reported the told her that she was on 1 of the best cholesterol medicines and that it should be safe for her. I see she is on Crestor, would agree that this is the good cholesterol medicine. We were talking and I did have to leave, there was a neurology phone call for another patient that I was taking care of in the ED, was just starting to ask patient if she had contacted the police are reported any of her concerns. I will be back to talk to her once the phone call is done is what I left her with. Related Data Previous Rx's ?Medication ?Instructions ?Recorded oxycodone-acetaminophen 5 mg-325 2 tab PO QID PRN pain #40 tabs 10/09/24 mg tablet phentermine 37.5 mg capsule 37.5 mg PO QDAY #30 caps 10/09/24 valacyclovir 1 gram tablet 2,000 mg (2 x 1 gram) PO BID PRN 10/09/24 cold sores #20 tabs cyclobenzaprine 10 mg tablet 10 mg PO TID PRN muscle spasm #60 10/16/24 tabs duloxetine 30 mg capsule,delayed 30 mg PO QDAY #90 caps 10/16/24 release (Cymbalta) epinephrine 0.3 mg/0.3 mL 0.3 mg (0.3 mL) IM ONCE PRN 10/16/24 injection, auto-injector (EpiPen anaphylaxis #2 ea 2-Domingo) lorazepam 1 mg tablet (Ativan) 1 mg PO TID PRN anxiety #90 tabs 10/16/24 meloxicam 15 mg tablet 15 mg PO QDAY PRN pain #90 tabs 10/16/24 rosuvastatin 10 mg tablet 10 mg PO DAILY #90 tabs 10/16/24 Allergies Allergy/AdvReac Type Severity Reaction Status Date / Time bee venom protein (honey bee) Allergy Unknown Verified 11/27/24 14:52 venlafaxine AdvReac Severe Flushing Verified 11/27/24 14:52 [facility] Medical History (Updated 11/27/24 @ 19:01 by Brittany Schroeder MD) Situational anxiety ?F41.8 - Other specified anxiety disorders (ICD-10) Hypercholesteremia ?E78.00 - Pure hypercholesterolemia, unspecified (ICD-10) Insomnia ?G47.00 - Insomnia, unspecified (ICD-10) Bee sting allergy ?Z91.030 - Bee allergy status (ICD-10) Depression with anxiety ?F41.8 - Other specified anxiety disorders (ICD-10) Surgical History (Updated 11/27/24 @ 14:48 by Filomena Laguerre ~ CHARGE MANAGER, CHARGE MANAGER) History of appendectomy ?Z90.49 - Acquired absence of other specified parts of digestive tract (ICD-10) History of colonoscopy ?Z98.890 - Other specified postprocedural states (ICD-10) Family History (Updated 10/09/24 @ 15:22 by Brooklynn Peterson ~ CTA) Sister Diabetes Breast cancer Social History (Updated 11/27/24 @ 14:55 by Filomena Laguerre ~ CHARGE MANAGER, CHARGE MANAGER) Narrative: 3 children Smoker What is your current living situation?: I presently have a place to live Problems where you live: no known problems In the past 12 months, utilities in danger of being shut off: no In past 12 months, lack of transportation kept you from medical appts, meetings, work, or getting things needed for daily living: no In the past 12 mos, have been you worried that your food would run out before you had money to buy more?: declined to answer In the past 12 mos, the food you bought just didn't last and you didn't have money to buy more?: declined to answer Smoking Status: Current every day smoker What tobacco products do you use: cigarettes Do you use any of these nicotine containing products: None Second hand tobacco smoke exposure: No Non-prescribed substance use: denies use How often does anyone, including family, friends and others, physically hurt you: decline to answer How often does anyone, including family, friends and others, insult or talk down to you: decline to answer How often does anyone, including family, friends and others, threaten you with harm: decline to answer How often does anyone, including family, friends and others, scream or curse at you: decline to answer service: No Exam Const: Vital Signs, click to edit/add: Vital Signs - 24 hr 11/27/24 17:34 Temperature 98.4 F Pulse Rate [Pulse Oximeter] 88 Respiratory Rate 18 Blood Pressure [Ri ght Upper Arm] 123/84 Pulse Oximetry 99 Oxygen Delivery Me thod Room Air Course Reevaluation(s) Time of Reevaluation #1: 18:33 Reevaluation #1: Did go back to talk to the patient. She had all her clothes on. Went to ask about contacting the please, she got a bit irritated with me. Reviewed with her that I was pulled away at that part of the conversation and really did not hear which she had said, we just started talking about if she had contacted police. She does tell me at this time she indeed had contacted the police. They told her the burden of proof was on her. She states it is hard to prove that there doing anything when they have access to her cameras, have access to her phone. She states they have access to the chargers to her cameras. At this time, telehealth is brought into the room, she does agree to talk to them at my request. Reviewed with her that they might be people that can help in this situation and help figure things out better. Time of Reevaluation #2: 18:53 Reevaluation #2: Went back to talk to patient after she finished with telehealth. We reviewed that in the ER our decision for mental health is to see if people are safe to discharge. She is not a danger to herself or others. She is not suicidal, not threatening others. She feels unsafe as she believes that she is being watched. She believes her phone and house has cameras on her. She feels her neighbor may come into the house because she is watching her on cameras. She feels that she can not order anything off the Internet or they will know. She thinks this maybe her ex- possibly pain the neighbor. We discussed paranoid ideation and delusions, she does not feel this is the case. She states she has reported this to the police. I reviewed with her that I have no way to help her decide or figure out if these things are happening, I do understand she fully believes they are happening. Telehealth does not feel that she is holdable, she is not a danger to herself or others, they do agree that this patient is functioning in life. She is obviously making it to clinic appointments, cares for 2 dogs at home. She denies any drug use, does endorse that she is started smoking again. She did sign a safety plan with telehealth. She does tell me that she will follow up with her primary in clinic. Did discuss with her that we certainly could check some labs here, would recommend head CT. She adamantly declines this, wants to go home. She did not wait for her paperwork, verbal discharge given. Vital Signs Vital signs: Initial Vital Signs Temperature 98.4 F 11/27/24 17:34 Temperature Source Temporal Artery Scan 11/27/24 17:34 Pulse Rate 88 11/27/24 17:34 Pulse Rhythm Regular 11/27/24 17:34 Respiratory Rate 18 11/27/24 17:34 Blood Pressure 123/84 11/27/24 17:34 Blood Pressure Mean 97 11/27/24 17:34 Blood Pressure Position Sitting 11/27/24 17:34 Pulse Oximetry 99 11/27/24 17:34 Oxygen Delivery Method Room Air 11/27/24 17:34 Vital Signs Temperature 98.4 F 11/27/24 17:34 Pulse Rate 88 11/27/24 17:34 Respiratory Rate 18 11/27/24 17:34 Blood Pressure 123/84 11/27/24 17:34 Pulse Oximetry 99 11/27/24 17:34 Oxygen Delivery Method Room Air 11/27/24 17:34 Temperature 98.4 F 11/27/24 17:34 Pulse Rate 88 11/27/24 17:34 Respiratory Rate 18 11/27/24 17:34 Blood Pressure 123/84 11/27/24 17:34 Pulse Oximetry 99 11/27/24 17:34 Oxygen Delivery Method Room Air 11/27/24 17:34 Discharge Plan Discharge Clinical Impression: Paranoia Patient Disposition: Home, Self-Care Condition: Unchanged Additional Instructions: Patient is requested to follow up with her primary in clinic. We also did review that if she is not feeling safe at home, thoughts are worsening, has further concerns that she is always welcome back here. She does understand that, was discharged to home. Prescriptions: No Action phentermine 37.5 mg capsule 37.5 mg PO QDAY Qty: 30 2RF Rx Instructions: must administer 30 minutes before or 1-2 hours after breakfast oxycodone-acetaminophen 5-325 mg tablet 2 tab PO QID PRN (Reason: pain) Qty: 40 0RF Rx Instructions: Not to exceed 6 tablets a day valacyclovir 1 gram tablet 2,000 mg PO BID PRN (Reason: cold sores) Qty: 20 1RF lorazepam [Ativan] 1 mg tablet 1 mg PO TID PRN (Reason: anxiety) Qty: 90 3RF epinephrine [EpiPen 2-Domingo] 0.3 mg/0.3 mL auto-injector 0.3 mg IM ONCE PRN (Reason: anaphylaxis) Qty: 2 0RF Rx Instructions: as a single dose; may repeat once cyclobenzaprine 10 mg tablet 10 mg PO TID PRN (Reason: muscle spasm) Qty: 60 2RF meloxicam 15 mg tablet 15 mg PO QDAY PRN (Reason: pain) Qty: 90 3RF rosuvastatin 10 mg tablet 10 mg PO DAILY Qty: 90 3RF duloxetine [Cymbalta] 30 mg capsule,delayed release(DR/EC) 30 mg PO QDAY Qty: 90 0RF Follow Up/Referrals: Torrey Nesbitt MD [Primary Care Provider] - Stand Alone Forms: [employer] Info Instructions
--- OUTSIDE RECORDS SUMMARY | 2024-11-27 19:05 | XMS_ITS | Clinical Summary ---
Author Organization [facility] Address [address] [place] [address] Care Team Providers Care Cylinder Press Operator Helper Name Role Phone None Reported, Pcp Primary Care Provider Unavail able Source Comments Patient records contain information from all sites at [facility]. For routine questions regarding patient records, call [phone] during business hours, M-F 8:00 AM - 5:00 PM Central Time. Record requests for emergency care only can be directed to [phone] at any time.[facility] Allergies Active Allergy Reactions Criticality Noted Date [...] on file Legal Sex Female 4:19 AM PATIENT FINANCIAL SERVICES SPECIALIST Gender Identity Not on file Sexual Orientation [...] BILATERAL Routine 02/05/2015 10:43 AM CDT PATHOLOGY FACTORER CYTOLOGY Routine 02/05/2015 12:00 AM CDT from [...] for FH and FDB is available through [employer]: FH/ADH Genetic Reflex Panel (test ADHP). Acquired (non-genetic) causes of markedly increased LDL cholesterol include cholestatic liver disease due to the presence of LpX. If a genetic form of hypercholesterolemia is suspected, family studies including biochemical testing for lipids (total cholesterol,triglycerides, LDL cholesterol and HDL cholesterol) are recommended. Please contact the laboratory at or the on-line test catalog at [employer] for information about how to order these [...] images. Venus Durán R.T.(R), R.T.(R)(M) IMG BI CT OCEDURES Edited Result - Final * Pathology FACTORER Cytology (02/05/2015 12:00 AM CDT) 02/05/2015 Narrative [facility] - 02/15/2015 8:44 AM CDT [facility] [address] [facility] [address] [place] [id number] Patient Name: OTONIEL BONILLA Collected: 02/05/2015 Address: City/State/Zip: [address] [place] [place], [place] [id number] Received: Reported: 02/08/2015 02/15/2015 Soc. Sec. #: /Age/Sex 1960 (Age: 54) F Physician(s): DAVE NESBITT MD Copy To: [facility] [id number] [address], [place] [address] CYTOPATHOLOGY FACTORER REPORT FINAL CYTOLOGIC DIAGNOSIS Pap Smear - [...] LAB PAP COPATH ORDERABLES Fi nal Result [facility] from Last 3 Months or Most Recently Relevant to Health Maintenance Insurance [facility] [address] [id number] Care Teams Cylinder Press Operator Helper Relationship Specialty Start Date End Date None Reported, Pcp PCP - General 07/11/24
--- OUTSIDE RECORDS SUMMARY | 2024-11-27 19:05 | XMS_ITS | Clinical Summary ---
Author Organization [facility] Address [address] [place] [address] Care Team Providers Care Solderer Dipper Name Role Phone Pcp, No Primary Care [...] on file Legal Sex Female 7:00 AM SPECIAL POLICE Gender Identity Not on file Sexual Orientation Not on file Obstetrics History Last Filed Vital Signs Vital Sign Reading Time Taken Comments Blood Pressure 113/73 07/07/2024 11:55 AM SPECIAL POLICE Pulse 100 07/07/2024 11:55 AM SPECIAL POLICE Temperature 36.7 C (98.1 F) 07/07/2024 11:55 AM SPECIAL POLICE Respiratory Rate 20 07/07/2024 11:55 AM SPECIAL POLICE Oxygen Saturation 95% 07/07/2024 11:55 AM SPECIAL POLICE Inhaled Oxygen Concentration - - Weight 70.3 kg (155 lb) 07/07/2024 11:55 AM SPECIAL POLICE Height 162.6 cm (5' 4) 07/07/2024 11:55 AM SPECIAL POLICE Body Mass Index 26.61 07/07/2024 11:55 AM SPECIAL POLICE Plan of Treatment Health Maintenance Due Date [...] Diagnosis Comments COLONOSCOPY 02/09/2023 11:45 AM CDT ASSISTANT VICE PRESIDENT THIN PREP PAP SCREEN IMAGED Routine 04/04/2021 [...] provided and informed consent obtained. The endoscope [id number] was passed through the anus andadvanced to the cecum, identified by appendiceal orifice and ileocecal valve.The colonoscopy was performed without difficulty. The patient toleratedthe procedure well. The quality of the bowel preparation was evaluatedusing the BBPS ([place] Bowel Preparation Scale) with scores of: Right [...] MD PROCEDURE ORD Final Res ult * ASSISTANT VICE PRESIDENT THIN PREP PAP SCREEN IMAGED (04/04/2021 3:30 PM CDT) Case Report Gynecologic Cytology Report Case: [id number] Authorizing Provider: Torrey Nesbitt MD Collected: 04/04/2021 1530 Ordering Location: [facility] Received: 04/06/2021 0750 First Screen: Matthias Monroy Specimen: ASSISTANT VICE PRESIDENT ThinPrep Vial Screening, Cervical/Vaginal 04/15/2021 3:13 PM CDT [facility] INTERPRETATION/ RESULT NEGATIVE FOR INTRAEPITHELIAL LESION OR MALIGNANCY (NIL) (none) 04/15/2021 3:13 PM CDT [facility] IMEN ADEQUACY Satisfactory for evaluation Endocervical component present Scant cellularity 04/15/2021 3:13 PM CDT [facility] HPV REQUEST HPV and PAP 04/15/2021 3:13 PM CDT [facility] Last Pap Date 02/21/2018 04/15/2021 3:13 PM CDT [facility] Last Pap Result NIL 3:13 PM CDT [facility] Additional Information 04/15/2021 3:13 PM CDT [facility] Comment: Interpreted at [facility] - [address], [place] [address] Automated Review Successful 04/15/2021 3:13 PM CDT [facility] Comment:Specimen processed s uccessfully by automated roller turner device, ThinPrep Imaging System, [employer] ANCILLARY TESTING ASSISTANT VICE PRESIDENT HPV Ordered, Please see separate report 04/15/2021 3:13 PM CDT [facility] Note The pap test is a [...] and malignant lesions. 04/15/2021 3:13 PM CDT [facility] Other (Cervical/Vagina l) 04/04/2021 3:30 PM CDT 04/06/2021 7:50 AM CDT us Torrey Nesbitt MD PATHOLOGY/CYTOLOGY Final Resul t [facility] [address] [place] [address], [place] from Last 3 Months or Most Recently Relevant to Health Maintenance Insurance [facility] Advance Directives * Full Code (Latest Code Status on File) Date Activated Date Inactivated Comments 02/09/2023 6:14 AM 02/09/2023 3:37 PM Question Answer Comments Code Status Discussion: Unable to Assess Preferences, Provider to review later * Full Code Date Activated Date Inactivated Comments 09/19/2012 6:22 AM 09/19/2012 9:22 AM Care Teams Solderer Dipper Relationship Specialty Start Date End Date Pcp, No . PCP - General 07/07/24
--- OUTSIDE RECORDS SUMMARY | 2024-11-27 19:05 | XMS_ITS | Encounter Summary ---
Author Organization [facility] Address [address] [place] [address] Care Team Providers Care Mathematics Improvement Teacher Name Role Phone None Reported, Pcp Primary Care Provider Unavail able Encounter Details Date Type Department Care Team (Late st Contact Info) Description 09/04/2018 [facility] [address] [place] [address] Torrey Nesbitt M.D. [address] [place] [phone] Pain Back (Primary Dx) Social History Tobacco Use Types Packs/Day Years Used Date Smoking Tobacco: Former Cigarettes Q uit: 02/15/2011 Smokeless Tobacco: Never Comments Unknown Sex and Gender Information Value Date Recorded Sex Assigned at Not on file Legal Sex Female 4:19 AM MARKETING CONTENT MANAGER Gender Identity Not on file Sexual Orientation Not on file documented as of this encounter Plan of Treatment Not on file documented as of this encounter Visit Diagnoses Diagnosis Pain Back- Primary documented in this encounter Additional Health Concerns Infection Onset Date Last Indicated Resolved Time COVID19 Pending 10/28/2021 10/28/2021 10/29/2021 1 2:16 AM MARKETING CONTENT MANAGER COVID19 Pending 11/01/2021 11/01/2021 11/01/2021 1 1:03 PM MARKETING CONTENT MANAGER COVID19 05/09/2022 05/09/2022 05/29/2022 4:45 AM CDT COVID19 Pending 04/16/2023 04/16/2023 04/16/2023 7 :17 PM CDT Assessment Noted Time PHQ-9 Depression Total Score: 3 12/12/19 15 12:26 PM CDT documented as of this encounter Care Teams Mathematics Improvement Teacher Relationship Specialty Start Date End Date None Reported, Pcp PCP - General 07/11/24 documented as of this encounter
--- OUTSIDE RECORDS SUMMARY | 2024-11-27 19:05 | XMS_ITS | Encounter Summary ---
Author Organization [facility] Address [address] [place] [address] Care Team Providers Care Manager Of Application Development Name Role Phone None Reported, Pcp Primary Care Provider Unavail able Reason for Referral * Outpatient (Routine) - Closed Specialty Diagnoses / Procedures Referred By Contac t Referred To Contact Spine Diagnoses Pain Back Torrey Nesbitt M.D. Phone: tel: fax: [facility] Referral ID Status Reason Start Date Expiration Date Visits Re quested Visits Authorized [id number] Closed 01/15/2018 07/14/2018 1 1 Encounter Details Date Type Department Care Team (Late st Contact Info) Description 01/15/2018 [facility] [address] [place] [address] Torrey Nesbitt M.D. [address] [place] [id number] Pain Back (Primary Dx) Social History Tobacco Use Types Packs/Day Years Used Date Smoking Tobacco: Former Comments Unknown Sex and Gender Information Value Date Recorded Sex Assigned at Not on file Legal Sex Female 4:19 AM HEAD IRRIGATOR Gender Identity Not on file Sexual Orientation [...] Pending 10/28/2021 10/28/2021 10/29/2021 1 2:16 AM HEAD IRRIGATOR COVID19 Pending 11/01/2021 11/01/2021 11/01/2021 1 1:03 PM HEAD IRRIGATOR COVID19 05/09/2022 05/09/2022 05/29/2022 4:45 AM CDT COVID19 Pending 04/16/2023 04/16/2023 04/16/2023 7 :17 PM CDT Assessment Noted Time PHQ-9 Depression Total Score: 3 12/12/19 15 12:26 PM CDT documented as of this encounter Care Teams Manager Of Application Development Relationship Specialty Start Date End Date None Reported, Pcp PCP - General 07/11/24 documented as of this encounter
== END 2024-11-27 19:04 | disposition home or self-care (01) ==
LOC: ED 19:03
PROVIDERS: Emergency Provider Family Medicine; PCP Family Medicine
DX: F22 Delusional disorders (principal)
CPT/HCPCS: 99283

== ENCOUNTER 2024-12-02 13:25 | Outpatient (CLI) | payer OTHER, SELFPAY | END 2024-12-02 13:26 | disposition home or self-care (01) | PROVIDERS: PCP Family Medicine; Visit Provider Family Medicine | DX: M54.16 Radiculopathy, lumbar region (principal); M51.369 Other intervertebral disc degeneration, lumbar region without mention of lumbar back pain or lower extremity pain | CPT/HCPCS: 64483; J1100; Q9966 ==

== ENCOUNTER 2025-06-29 19:00 | Outpatient (CLI) | payer OTHER, SELFPAY | END 2025-06-29 19:01 | disposition home or self-care (01) | LOC: LKVREF 19:10 | PROVIDERS: PCP Family Medicine; Visit Provider Family Medicine | DX: B35.1 Tinea unguium (principal); E78.00 Pure hypercholesterolemia, unspecified; Z79.899 Other long term (current) drug therapy | CPT/HCPCS: 80053; 80061 ==